=== PATIENT | female | born 1955 | race Caucasian/White ===

== ENCOUNTER 2018-07-09 08:52 | Inpatient (IN) | payer OTHER ==
[~2018-07-09] VITALS: Ht 152.4 cm; Wt 54.9 kg
[2018-07-09] VITALS (9 sets, daily range): BP systolic 136–151; BP diastolic 79–93
[2018-07-09] MEDS ORDERED: LASIX 20 MG TAB20 MG PO (09:24)
[2018-07-09] MEDS ORDERED: AWAKE200 MG PO (09:24)
[2018-07-09] MEDS ORDERED: ASPIR 8181 MG PO (09:24)
[2018-07-09] MEDS ORDERED: BUTISOL SODIUM30 MG PO (09:25)
[2018-07-09] MEDS ORDERED: SPIRIVA INH (09:25)
[2018-07-09] MEDS ORDERED: PREDNISONE 20 M20 MG PO (09:25)
[2018-07-09] MEDS ORDERED: ACETAMINOPHEN-1 EAC1 PO (09:25)
[2018-07-09] MEDS ORDERED: FLUOCINOLON118.28 M1 TOP (09:25)
[2018-07-09 09:46] LABS: HEMATOCRIT 40.7 % (37.0-47.0); HEMOGLOBIN 12.7 gm/dL (12.0-15.0); MCH 28.2 pg (26.0-34.0); MCHC 31.2 g/dL (28.0-37.0); MCV 90.1 fL (80.0-100.0); MPV 6.6 fl. (7.2-11.1); NUCLEATED RBCS 0 /100WBC; PLATELET COUNT* 293 thou/uL (150-400); RBC 4.51 mil/uL (4.20-5.00); RDW-CV 17.9 % (10.5-14.5); WBC 4.7 thou/uL (4.0-11.0)
[2018-07-09 10:40] LABS: ABSOLUTE EOSINOPHILS 0.5 thou/uL (0.0-0.7); ABSOLUTE LYMPHOCYTES 0.4 thou/uL (0.8-5.3); ABSOLUTE MONOCYTES 0.2 thou/uL (0.0-1.2); ABSOLUTE NEUTROPHILS 3.6 thou/uL (1.6-8.1); ANISOCYTOSIS 1+; METAMYELOCYTES 1 %; PLATELET ESTIMATE ADEQUATE
[2018-07-09 10:44] LABS: ANION GAP 9 mmol/L (7-16); BUN 14 mg/dL (7-18); CALCIUM 8.9 mg/dL (8.5-10.1); CHLORIDE 104 mmol/L (98-107); CO2 27 mmol/L (21-32); GLUCOSE 126 mg/dL (70-99); POTASSIUM 4.1 mmol/L (3.5-5.1); SODIUM 140 mmol/L (136-145)
[2018-07-09 10:51] LABS: ALBUMIN 3.5 g/dL (3.4-5.0); ALKALINE PHOSPHATASE 43 U/L (46-116); SGOT 18 U/L (15-37); SGPT 13 U/L (30-65); TOTAL BILIRUBIN 0.3 mg/dL (<0.1-1.0); TOTAL PROTEIN 6.7 g/dL (6.4-8.2); TROPONIN-I LEVEL <0.06 ng/mL (<0.06)
[2018-07-09 11:48] LABS: APTT 24.4 Seconds (25.0-31.3); PROTIME 10.7 Seconds (9.20-11.50)
--- NOTE | 2018-07-09 17:01 | EKG ---
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
[2018-07-10] VITALS (16 sets, daily range): BP systolic 137–159; BP diastolic 75–98
[2018-07-10 12:12] LABS: CHOLESTEROL 282 mg/dL (<200); HDL CHOLESTEROL 100 mg/dL (>40); LDL CHOLESTEROL 155 mg/dL (<100); TC:HDL 2.8 Ratio (Not establshd); TRIGLYCERIDE 136 mg/dL (<150); VLDL 27 mg/dL (<40)
[2018-07-10 12:21] LABS: SERUM ASSESSMENT Clear
[2018-07-11] VITALS: BP 167/86
[2018-07-11 04:00] VITALS: BP 158/92
[2018-07-11 08:00] VITALS: BP 154/93
[2018-07-11 11:36] VITALS: BP 172/97
[2018-07-11 13:18] LABS: ABSOLUTE LYMPHOCYTES 0.2 thou/uL (0.8-5.3); ABSOLUTE MONOCYTES 0.4 thou/uL (0.0-1.2); ABSOLUTE NEUTROPHILS 8.7 thou/uL (1.6-8.1); BASOPHILS 0.1 %; EOSINOPHILS 0.5 %; HEMATOCRIT 45.1 % (37.0-47.0); LYMPHOCYTES 2.5 %; MCH 28.7 pg (26.0-34.0); MCHC 32.6 g/dL (28.0-37.0); MCV 88.3 fL (80.0-100.0); MONOCYTES 3.9 %; MPV 6.9 fl. (7.2-11.1); NUCLEATED RBCS 0 /100WBC; PLATELET COUNT* 329 thou/uL (150-400); RBC 5.11 mil/uL (4.20-5.00); RDW-CV 17.1 % (10.5-14.5); WBC 9.3 thou/uL (4.0-11.0)
[2018-07-11 13:34] LABS: HEMOGLOBIN 14.7 gm/dL (12.0-15.0)
[2018-07-11 13:44] LABS: CALCIUM 9.2 mg/dL (8.5-10.1); CREATININE 0.8 mg/dL (0.6-1.3); MAGNESIUM 1.5 mg/dL (1.8-2.4); POTASSIUM 3.6 mmol/L (3.5-5.1)
[2018-07-11 15:37] VITALS: BP 130/81
[2018-07-11 20:00] VITALS: BP 115/75
[2018-07-12] VITALS: BP 142/85
[2018-07-12 04:00] VITALS: BP 125/81
[2018-07-12 08:14] VITALS: BP 133/70
[2018-07-12] MEDS ORDERED: LOSARTAN-HCTZ1 EACH PO (10:13)
[2018-07-12] MEDS ORDERED: DEPAKOTE ER500 MG PO (10:15)
[2018-07-12] MEDS ORDERED: FIORINAL WITH1 EACH PO (10:17)
[2018-07-12] MEDS ORDERED: PEPCID20 MG PO (10:18)
[2018-07-12] MEDS ORDERED: IMITREX100 MG PO (10:20)
[2018-07-12] MEDS ORDERED: KEFLEX500 M1 PO (10:37)
[2018-07-12] MEDS ORDERED: HYDROXYZINE HCL25 M1 PO (10:38)
[2018-07-12] MEDS ORDERED: DECADRON4 MG PO (10:38)
[2018-07-12] MEDS ORDERED: LASIX 20 MG TAB20 MG PO (10:39)
[2018-07-12] MEDS ORDERED: KEPPRA 500 MG500 M1 PO (10:50)
[2018-07-12 12:00] VITALS: BP 104/67
[2018-07-12 12:47] VITALS: BP 133/70
--- NOTE | 2018-07-20 09:32 | EEG ---
[address] [address] EEG STUDY REPORT Name: ABISAI PEDRO Zhanna Room: [address] IN M.R.#: [id number] Admission: 07/09/18 Attend Phys: Garfield Andrea Discharge: 07/12/18 Date of : 55 Report #: [id number] THIS REPORT FOR: //name// CC: Letitia Welch DATE OF SERVICE: 07/09/2018 This patient is being evaluated for pretty unusual presentation. She had a seizure and she is unresponsive. EEG was done by placing the electrodes by standard 10-20 system of electrode placement. Both referential and sequential montages were used for recording. Background activity in this patient's EEG is about 7 Hz and 30 microvolts. Photic stimulation is unremarkable. Throughout the record, no active epileptiform activity was noticed. IMPRESSION: This is an abnormal EEG because it is disorganized and poorly formed. That is a nonspecific abnormality, which can occur with encephalopathy, effect of psychotropic medication, dementia, etc. Clinical correlation is recommended. <ELECTRONICALLY SIGNED> By: Todd Eden MD 07/20/18 0932 1642 1657Todd Eden MD /nt
--- NOTE | 2018-07-20 09:32 | CON ---
[address] [address] CONSULTATION Name: ABISAI PEDRO Room: [address] IN M.R.#: [id number] Admission: 07/09/18 Attend Phys: Garfield Andrea Discharge: 07/12/18 Date of : 55 Report #: [id number] THIS REPORT FOR: //name// CC: Letitia Welch DATE OF SERVICE: 07/09/2018 HISTORY OF PRESENT ILLNESS: This is a 63-year-old female patient who is unable to provide any history. History is taken after talking to the patient's son and the patient's . I talked to Dr. Esquivel multiple times. History is very complicated and decision making was very difficult. The patient's family gives a history that she started having grand mal seizures in 1987. It looks like this started spontaneously without any trauma or BRAIDER TENDER infection. She was put on anticonvulsant. They do not know which anticonvulsant she was on. Anticonvulsant mostly controlled her seizure, but she will continue to have intermittent seizures. They estimated that she had between 5-10 seizures which were grand mal seizures since 1987. The seizures typically consist of pretty classical tonic-clonic activity followed by postictal period. Postictal periods typically last about 1-2 hours. The family gives a history that this patient was acting "goofy" for 1 week. In between, they thought that she may have had a seizure-like activity. That happened on Monday. She did not seek any medical attention. Since her seizure in 1987, she likes to stay only at home and she has lost confidence according to the family and she does not drive. This morning around 8:15, she complained of problem with the vision. This was followed by a grand mal seizure. This was followed by a postictal period and when she was brought to Emergency Room, she was in postictal period. She was initially seen by Dr. Esquivel from Emergency Room who did a CT scan of the head, which was unremarkable. Subsequently, I was called and I saw the patient. When I saw the patient, the patient was actively seizing. She will start the seizure. Then, she will have generalized jerking. She was not responsive. According to the nurses, she has talked but did not make any sense. Because of recurrent seizures, she was given Ativan subsequently and it was very difficult to examine her after that. She does have hypertension according to the family, but she does not take her medication properly. REVIEW OF SYSTEMS: A 14-point review of system was carried out as much as we could with the time constraint. The biggest thing she has positive is for seizures. She does have a history of migraine. She used to get one migraine every week, but now she gets it less often. She takes butabarbital on a regular basis. She also takes prednisone on a regular basis. This was 14-point review of system, which I could carry [place] [address] CONSULTATION Name: ABISAI PEDRO Room: [address] IN M.Cristy#: [id number] Admission: 07/09/18 Attend Phys: Garfield Andrea Discharge: 07/12/18 Date of : 55 Report #: [id number] PAST MEDICAL HISTORY: Positive for seizures. FAMILY HISTORY: Negative for early age stroke. SOCIAL HISTORY: She drinks alcohol very rarely and she does not smoke. PHYSICAL EXAMINATION: The patient's examination was very limited. The patient to me opened her eyes, but did not do anything. She does not move the right side much. She does move left side some, but does not move that much either. Pupils are small and nonreactive. She continued to have multiple issues. Her pulse rate is running at 132. Her blood pressure in fact is somewhat low, it is 118; at one time, it was somewhat high; so it is fluctuating. I cannot tell about focality, but she definitely had recurrent seizure activity with the focality towards the right side, but seizures are generalized. IMPRESSION: 1. Recurrent seizures in the patient with a prior history of seizures. She had stopped taking her anticonvulsant by herself about 1 year ago. She had symptom for 1 week, what they describe as goofiness, and I suspect that may be non-convulsive seizures. She was given Keppra for that. 2. Possible stroke, that is the question we addressed numerous times with the family. It is very difficult to tell in a patient like this whether she has an underlying stroke this time or not. Because of that, we went ahead and prepared her for TPA in case we can get some answers from further testing. I frankly discussed with the family that we will do further testing, but time will run out. After discussing virtually all the options with them, my plan was to do a CT angiogram and perfusion in this patient. That was done. I discussed with two radiologists. Both of them indicated that there is no blockage in any of the large vessels in this patient. 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 After discussing with the radiologist, I went back and talked to the family. I discussed with them the options of TPA or not giving her TPA. After discussing the pros and cons of both the options, the family decided that they will stay without TPA. In this patient, TPA was not given because the patient had a known history of seizure, her symptoms were going on for a week, we cannot tell that the deficit is because of seizures or stroke, CT perfusion indicates that she had a stroke, but it is at an irreversible state and it is not in the penumbra stage and CT perfusion is not accurate when the person is having seizures because it contaminates the finding. The family was given the option and the family decided that they do not want TPA. That is a reasonable approach in this patient. Unfortunately, this patient had a stroke and it is in an irreversible stage and because of that, this approach [place] [address] CONSULTATION Name: ABISAI PEDRO Room: [address] IN [facility].#: [id number] Admission: 07/09/18 Attend Phys: Garfield Andrea Discharge: 07/12/18 Date of : 55 Report #: [id number] family is reasonable and we will follow that approach. I will get an EEG done. I will get a stat MRI done. We will send this patient to ICU. The prognosis in this patient is very guarded. I will re-discuss the situation with the family after I have an opportunity to review the MRI. RECOMMENDATIONS: We will restart the patient on Keppra and the patient's family was counseled on all these matters on numerous occasions I had with him. More than 70 minutes of time was spent taking care of this patient today and majority of that time was spent counseling the family. <ELECTRONICALLY SIGNED> By: Todd Eden MD 07/20/18 0932 1322 1655Todd Eden MD /nt
== END 2018-07-12 13:44 | disposition home or self-care (01) | DRG 100 ==
LOC: M.ERS 08:52 → M.ICU 13:14 → M.TBA-ER 13:14 → M.ICU 14:20 → M.2W 07-10 17:18
PROVIDERS: Emergency Medicine Emergency Medical Services; ADMIT Internal Medicine
DX: G40.401 Other generalized epilepsy and epileptic syndromes, not intractable, with status epilepticus (principal); J96.01 Acute respiratory failure with hypoxia; G43.909 Migraine, unspecified, not intractable, without status migrainosus; K52.9 Noninfective gastroenteritis and colitis, unspecified; J44.9 Chronic obstructive pulmonary disease, unspecified; L40.9 Psoriasis, unspecified; Z91.14 Patient's other noncompliance with medication regimen; Z79.82 Long term (current) use of aspirin; Z79.899 Other long term (current) drug therapy

== ENCOUNTER 2018-07-31 11:02 | Inpatient (IN) | payer OTHER ==
[~2018-07-31] VITALS: Ht 152.4 cm; Wt 54.0 kg
[~2018-07-31 11:02] MED LIST: ACETAMINOPHEN-1 EAC1 PO; ASPIR 8181 MG PO; AWAKE200 MG PO; BUTISOL SODIUM30 MG PO; DECADRON4 MG PO; DEPAKOTE ER500 MG PO; FIORINAL WITH1 EACH PO; FLUOCINOLON118.28 M1 TOP; HYDROXYZINE HCL25 M1 PO; IMITREX100 MG PO; KEFLEX500 M1 PO; KEPPRA 500 MG500 M1 PO; LASIX 20 MG TAB20 MG PO; LOSARTAN-HCTZ1 EACH PO; PEPCID20 MG PO; PREDNISONE 20 M20 MG PO; SPIRIVA INH
[2018-07-31 11:05] VITALS: BP 125/61
[2018-07-31 11:49] LABS: HEMATOCRIT 36.8 % (37.0-47.0); HEMOGLOBIN 11.9 gm/dL (12.0-15.0); MCH 28.8 pg (26.0-34.0); MCHC 32.3 g/dL (28.0-37.0); MCV 89.1 fL (80.0-100.0); MPV 7.5 fl. (7.2-11.1); NUCLEATED RBCS 0 /100WBC; PLATELET COUNT* 95 thou/uL (150-400); RBC 4.13 mil/uL (4.20-5.00); RDW-CV 17.7 % (10.5-14.5); WBC 3.2 thou/uL (4.0-11.0)
[2018-07-31 11:58] LABS: ANION GAP 11 mmol/L (7-16); APTT 27.3 Seconds (25.0-31.3); BUN 48 mg/dL (7-18); CHLORIDE 102 mmol/L (98-107); CO2 29 mmol/L (21-32); CREATININE 1.8 mg/dL (0.6-1.3); GLUCOSE 158 mg/dL (70-99); INR 1.1; POTASSIUM 4.5 mmol/L (3.5-5.1); PROTIME 10.8 Seconds (9.20-11.50); SODIUM 142 mmol/L (136-145)
[2018-07-31 12:18] LABS: ALBUMIN 3.6 g/dL (3.4-5.0); ALKALINE PHOSPHATASE 42 U/L (46-116); AMMONIA < 10 umol/L (11-32); CK-MB MASS 1.9 ng/mL (<0.5-3.6); NT-PRO BRAIN NAT PEPTIDE 6108 pg/mL (<300); SGOT 25 U/L (15-37); SGPT 16 U/L (30-65); TOTAL BILIRUBIN 0.4 mg/dL (<0.1-1.0); TOTAL PROTEIN 6.9 g/dL (6.4-8.2); TROPONIN-I LEVEL <0.06 ng/mL (<0.06)
[2018-07-31 12:25] LABS: ABSOLUTE LYMPHOCYTES 0.3 thou/uL (0.8-5.3); ABSOLUTE MONOCYTES 0.1 thou/uL (0.0-1.2); ABSOLUTE NEUTROPHILS 2.8 thou/uL (1.6-8.1); ANISOCYTOSIS 1+; PLATELET ESTIMATE DECREASED; POIKILOCYTOSIS 1+
--- NOTE | 2018-07-31 13:09 | EKG ---
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 : 1955 Requested By: Villa Mo Order Number: [id number] MD: Margarito Calvert Measurements Intervals [place] Rate: 100 P: 87 MO: 134 QRS: 88 QRSD: 97 T: 83 QT: 353 QTc: 456 Interpretive Statements Sinus tachycardia Borderline right axis deviation Compared to ECG 07/09/2018 09:42:28 No significant changes Electronically Signed On 07-31-2018 13:08:46 CDT by Margarito Calvert [email or web address] <ELECTRONICALLY SIGNED> By: Margarito Calvert MD, [facility] 07/31/18 1308 1134 1134 Margarito Calvert MD, FACC /EPI
[2018-07-31 15:49] VITALS: BP 125/69
[2018-07-31 16:05] VITALS: BP 131/85
[2018-07-31 19:30] VITALS: BP 128/61
[2018-08-01] VITALS: BP 119/71
[2018-08-01 04:00] VITALS: BP 132/64
[2018-08-01 05:25] LABS: HEMATOCRIT 34.5 % (37.0-47.0); HEMOGLOBIN 11.1 gm/dL (12.0-15.0); MCHC 32.1 g/dL (28.0-37.0); MCV 90.3 fL (80.0-100.0); MPV 7.7 fl. (7.2-11.1); RBC 3.83 mil/uL (4.20-5.00); RDW-CV 17.7 % (10.5-14.5); WBC 3.6 thou/uL (4.0-11.0)
[2018-08-01 05:57] LABS: CALCIUM 8.9 mg/dL (8.5-10.1); CREATININE 1.1 mg/dL (0.6-1.3); MAGNESIUM 2.1 mg/dL (1.8-2.4); POTASSIUM 4.5 mmol/L (3.5-5.1); TOTAL BILIRUBIN 0.4 mg/dL (<0.1-1.0); TOTAL PROTEIN 5.7 g/dL (6.4-8.2)
[2018-08-01 08:10] VITALS: BP 132/83
[2018-08-01 11:33] VITALS: BP 132/75
[2018-08-01 15:52] VITALS: BP 112/70
[2018-08-01 19:40] VITALS: BP 113/86
[2018-08-02] VITALS: BP 103/58
[2018-08-02 04:00] VITALS: BP 115/62
[2018-08-02 08:30] VITALS: BP 130/81
[2018-08-02 11:47] VITALS: BP 116/78
[2018-08-02 12:02] LABS: URINE BILIRUBIN NEGATIVE (Negative); URINE BLOOD 2+ (Negative); URINE CLARITY CLEAR; URINE COLOR YELLOW; URINE GLUCOSE-RANDOM NEGATIVE (Negative); URINE KETONES NEGATIVE (Negative); URINE LEUKOCYTES-REFLEX NEGATIVE (Negative); URINE NITRITE-REFLEX NEGATIVE (Negative); URINE PROTEIN 1+ (Negative); URINE UROBILINOGEN 0.2 E.U./dl (0.2-1.0)
[2018-08-02 12:12] LABS: BACTERIA-REFLEX 1-9 Few /HPF (None Seen); CASTS None Seen /LPF (None Seen); CRYSTALS None Seen /LPF (None Seen); MUCUS 0-3 Light strn/LPF (None Seen); SQUAMOUS 0-3 Few /LPF (0-3); URINE RBC 3-10 Few /HPF (0-2); URINE WBC-REFLEX 0-5 Rare /HPF (0-5)
[2018-08-02] MEDS ORDERED: FOLIC ACID1 MG PO (13:51)
[2018-08-02 14:03] VITALS: BP 116/78
[2018-08-02] MEDS ORDERED: DEPAKOTE PO (14:24)
--- NOTE | 2018-08-06 09:50 | EEG ---
[address] [address] EEG STUDY REPORT Name: ABISAI PEDRO Room: [address] IN M.R.#: [id number] Admission: 07/31/18 Attend Phys: Damion Srivastvaa MD Discharge: 08/02/18 Date of : 55 Report #: [id number] THIS REPORT FOR: //name// CC: Damion Welch DATE OF SERVICE: 08/01/2018 This patient is being evaluated for altered mental status. EEG was done by placing the electrodes by standard 10/20 system of electrode placement. Both referential and sequential montages were used for recording. Background activity in this patient's EEG is about 7 Hz and 30 microvolt. Photic stimulation was unremarkable. The patient went to sleep and that was associated with bilaterally symmetrical sleep spindles and vertex sharp waves. Some sharp transient was noticed, but most of the activity is slow. IMPRESSION: This is an abnormal electroencephalogram because it is disorganized and poorly formed. That is a nonspecific abnormality, which can occur with encephalopathy, effect of psychotropic medication, dementia, etc. Clinical correlation is recommended. <ELECTRONICALLY SIGNED> By: Todd Eden MD 08/06/18 0950 1829 1851Psrinivasa Eden MD /nt
--- NOTE | 2018-08-06 09:50 | CON ---
[facility] [address] [place] [address] CONSULTATION Name: ABISAI PEDRO Room: [address] IN M.R.#: [id number] Admission: 07/31/18 Attend Phys: Damion Srivastava MD Discharge: 08/02/18 Date of : 55 Report #: [id number] THIS REPORT FOR: //name// CC: Damion Welch DATE OF SERVICE: 08/01/2018 HISTORY OF PRESENT ILLNESS: This is a 63-year-old female patient whom I have seen in the past. This patient is not able to provide a good history why she is here. I had 2 numbers for the patient's family and and I called them and I cannot get any answer from them. The patient does not believe there is anything wrong with her. She was admitted here with what looks like seizures and then was dismissed. When she went home, she was on Keppra but subsequently, she went on Depakote. I am not sure when did that occur. I am trying to get the family to see if I can address any question with them. The patient apparently was drowsy when she came here. She is not drowsy anymore. She had some visual hallucination. She cannot tell me much about that. She has a history of delirium. I carried out 14-point review of systems and that is all the history I can get. She had a hernia repair in the past. She had breast biopsy and has a history of migraine and psoriasis. REVIEW OF SYSTEMS: This was her relevant 14-point review of system. She indicates that she does not have any new eye, ENT, cardiac, respiratory, GI, , musculoskeletal, constitutional, dermatological, hematological, psychiatric, throat and allergic symptoms associated with present symptomatology. PAST MEDICAL HISTORY: Positive for seizure and she is back on Depakote. FAMILY HISTORY: Negative for early age seizure. SOCIAL HISTORY: She indicates she does not drink alcohol. PHYSICAL EXAMINATION: NEUROLOGICAL: Indicate she is alert. She is partly oriented as she was the last time I saw her. Her speech, concentration, fund of knowledge and memory is at her baseline. Cranial nerve examination 2 through 12 looks unremarkable. Neuromuscular examination as checked for strength, sensation, reflexes and tone looks unchanged. No cerebellar sign. I could not look at the patient's fundus. EXTREMITIES: Pulses are difficult to feel. GENERAL: She is moderately-built individual who does not have any dysmorphic features of eyes, ears and face. CARDIAC: Examination is unremarkable. RESPIRATORY: Examination does not show any respiratory difficulty or rhonchi on either side. NECK: [place] [address] CONSULTATION Name: ABISAI PEDRO Room: [address] IN M.R.#: [id number] Admission: 07/31/18 Attend Phys: Damion Srivastava MD Discharge: 08/02/18 Date of : 55 Report #: [id number] VITAL SIGNS: Blood pressure is 132/83, pulse is 82, temperature is 98.5 and respiration is 18. RADIOLOGICAL DATA: Her MRI is pending. LABORATORY DATA: Lab indicates a sodium of 146. White count is 3.6 and platelet count is 102 and in June, it was 329. IMPRESSION: History of seizure. She was switched to Depakote. That needed to be readdressed because her platelet count has fallen. I cannot get any good history from the patient when and where it was switched. I need to talk to the family. She is scheduled to have an MRI done and we will see what it shows. We will also get an EEG done in this patient. We will reevaluate the situation after the above is accomplished and after we are able to talk to the family. RECOMMENDATIONS: 1. EEG. 2. MRI. 3. Continue to make an effort to reach the family, so that we can get some further information on her. Thank you very much for this referral. <ELECTRONICALLY SIGNED> By: Todd Eden MD 08/06/18 0950 1140 [id number] Eden MD /ashia
== END 2018-08-02 14:52 | disposition home or self-care (01) | DRG 682 ==
LOC: M.ERS 11:02 → M.TBA-ER 13:50 → M.2W 15:56
PROVIDERS: Emergency Medicine; ADMIT Internal Medicine
DX: N17.0 Acute kidney failure with tubular necrosis (principal); G92 Toxic encephalopathy; G43.909 Migraine, unspecified, not intractable, without status migrainosus; R41.0 Disorientation, unspecified; F03.90 Unspecified dementia, unspecified severity, without behavioral disturbance, psychotic disturbance, mood disturbance, and anxiety; L40.9 Psoriasis, unspecified; E53.8 Deficiency of other specified B group vitamins; D72.819 Decreased white blood cell count, unspecified; E86.9 Volume depletion, unspecified; Z79.899 Other long term (current) drug therapy; Z23 Encounter for immunization; Z79.82 Long term (current) use of aspirin

== ENCOUNTER 2018-12-25 21:03 | Inpatient (IN) | payer OTHER ==
[~2018-12-25] VITALS: Ht 162.6 cm; Wt 54.4 kg
[~2018-12-25 21:03] MED LIST changes: +DEPAKOTE PO; +FOLIC ACID1 MG PO; +LOSARTAN-HCTZ1 EAC2 PO; -LOSARTAN-HCTZ1 EACH PO
[2018-12-25 21:34] VITALS: BP 76/43
[2018-12-25 21:56] LABS: URINE BLOOD NEGATIVE (Negative); URINE CLARITY CLEAR; URINE COLOR YELLOW; URINE GLUCOSE-RANDOM NEGATIVE (Negative); URINE KETONES NEGATIVE (Negative); URINE LEUKOCYTES-REFLEX NEGATIVE (Negative); URINE NITRITE-REFLEX NEGATIVE (Negative); URINE PROTEIN NEGATIVE (Negative); URINE SPECIFIC GRAVITY >= 1.030 (1.005-1.030); URINE UROBILINOGEN 0.2 E.U./dl (0.2-1.0)
[2018-12-25 21:59] LABS: ICTOTEST (BILI CONFIRMATORY) Negative (Negative); URINE BILIRUBIN 1+ (Negative)
[2018-12-25 22:09] LABS: AMP/METHAMP Negative (Negative); BARBITURATES POSITIVE (Negative); BENZODIAZEPINES POSITIVE (Negative); COCAINE Negative (Negative); METHADONE Negative (Negative); OPIATES POSITIVE (Negative); PCP Negative (Negative); THC Negative (Negative)
[2018-12-25 22:41] LABS: HEMATOCRIT 40.4 % (37.0-47.0); HEMOGLOBIN 12.7 gm/dL (12.0-15.0); MCH 29.6 pg (26.0-34.0); MCHC 31.3 g/dL (28.0-37.0); MCV 94.6 fL (80.0-100.0); MPV 8.3 fl. (7.2-11.1); NUCLEATED RBCS 0 /100WBC; RBC 4.27 mil/uL (4.20-5.00); RDW-CV 15.9 % (10.5-14.5)
[2018-12-25 23:06] LABS: ACETAMINOPHEN < 2 ug/mL (10-30); SALICYLATE 3.9 mg/dL (2.8-20.0)
[2018-12-25 23:08] LABS: ALBUMIN 2.8 g/dL (3.4-5.0); CALCIUM 8.1 mg/dL (8.5-10.1); CREATININE 5.3 mg/dL (0.6-1.3); MAGNESIUM 2.5 mg/dL (1.8-2.4); TOTAL BILIRUBIN 0.3 mg/dL (<0.1-1.0); TOTAL PROTEIN 6.2 g/dL (6.4-8.2)
[2018-12-25 23:16] LABS: ABSOLUTE LYMPHOCYTES 0.5 thou/uL (0.8-5.3); ABSOLUTE MONOCYTES 0.3 thou/uL (0.0-1.2); ABSOLUTE NEUTROPHILS 4.3 thou/uL (1.6-8.1); PLATELET COUNT* 66 thou/uL (150-400); PLATELET ESTIMATE DECREASED
[2018-12-25 23:18] LABS: POTASSIUM 6.3 mmol/L (3.5-5.1)
[2018-12-26] VITALS (26 sets, daily range): BP systolic 82–131; BP diastolic 44–96
[2018-12-26 03:38] LABS: CREATININE 4.1 mg/dL (0.6-1.3); POTASSIUM 5.2 mmol/L (3.5-5.1)
[2018-12-26 04:06] LABS: BE -9.9 mmol/L (-2 to +3); PCO2 39.7 mmHg (35.0-45.0)
[2018-12-26 04:11] LABS: PO2 403.7 mmHg (75.0-100.0); pH 7.243 (7.340-7.450)
--- NOTE | 2018-12-26 04:20 | NUR ---
patient arrived to unit @ 0410 ventilator, versed gtt and calcium gluconate iv infusing. pt having twitching like movements non-rhythmic. pupils 1 reactive sluggish. pt sinues tachy on monitor. temp 99.0. bp, rr wnl. pt had bm during transfer. erythema on sacrol noted. pictures taken on chart. no family member at bedside. will continue to monitor.
[2018-12-26] MEDS ORDERED: BUTALB-APAP-CA1 EACH PO (09:03)
[2018-12-26] MEDS ORDERED: PROTOPIC OINTME30 GM TOP (09:08)
--- NOTE | 2018-12-26 10:43 | NUR ---
WOUND CARE NOTE: CONSULT RECEIVED FOR SACRAL AREA RED BLANCHABLE ON ADMISSION. CARE PLAN IN PLACE. LOW AIR LOSS MATTRESS IN PLACE. SPOKE WITH PATIENT'S RN, RECOMMEND SIDE TO SIDE TURNING, CONTINUE LOW AIR LOSS MATTRESS, LIMIT HOB <30 DEGREES IF ABLE. WOULD ALSO RECOMMEND LIMITING LAYERS UNDER PATIENT BARRIER OINTMENT BID AND PRN ELEVATE HEELS OFF BED
--- NOTE | 2018-12-26 17:09 | NUR ---
PATIENT BP DROPPED TO 84/53. HR 126. PHYSICIAN PAGED. AWAITING RESPONSE.
--- NOTE | 2018-12-26 18:41 | NUR ---
PATIENT SOMEWHAT PROGRESSING TOWARDS GOALS. WEANED TO 30% FIO2. PER PULMONARY KEEP OFF SEDATION IF ABLE, GIVE PRN PUSH VERSED AND FENTANYL TO KEEP COMFORTABLE UNTIL WEANING TRIAL IN AM. PROPOFOL AVAILABLE IF NEEDED. PATIENT CATHETER EXCHANGED. PER ULTRASOUND, PATIENT'S BLADDER FULL WITH CATHETER IN. MANUPULATED TO DRAIN 500 ML AT THAT TIME. UPON EVENING I&O, PATIENT BLADDER DISTENDED. CATHETER CHANGED OUT AND EMPTIED 400 MORE ML AT THAT TIME. HUNG TO DEPENDENT DRAINAGE. PATIENT SCREENED SEPSIS POSITIVE. PER DR YUEN, FLUID CHALLENGE GIVEN. BP 130/75 AT THIS TIME. PRESENT BRIEFLY TODAY. UPDATED ON PLAN OF CARE AND ALL QUESTIONS ANSWERED.
--- NOTE | 2018-12-26 23:07 | NUR ---
Body dc'd from unit per cart and escorted by security.
[2018-12-27] VITALS (22 sets, daily range): BP systolic 92–132; BP diastolic 54–81
[2018-12-27 04:39] LABS: ALBUMIN 2.4 g/dL (3.4-5.0); CALCIUM 8.6 mg/dL (8.5-10.1); MAGNESIUM 2.1 mg/dL (1.8-2.4); PHOSPHORUS* 2.7 mg/dL (2.5-4.9); POTASSIUM 3.5 mmol/L (3.5-5.1)
[2018-12-27 05:24] LABS: CREATININE 1.5 mg/dL (0.6-1.3)
--- NOTE | 2018-12-27 05:28 | NUR ---
patient progressing towards goals. opens eyes when oral care is administered. grimaces when being turned. versed iv pushes given to keep pt comfortable. pt was taken off tube feed @0000 today d/t high residuals. pt bp wnl through out shift. pt received q2h turns remaind off back, barrier ointment added prn. urine output 750. expected weaning trial this a.m. spoke to last night updated on care. he voiced understanding. pt in seizure precautions will continue to monitor.
--- NOTE | 2018-12-27 07:55 | CON ---
[address] [address] CONSULTATION Name: ABISAI PEDRO Room: [address] IN .R.#: [id number] Admission: 12/26/18 Attend Phys: Yamilex Borjas MD Discharge: Date of : 55 Report #: [id number] THIS REPORT FOR: //name// CC: Omid Borjas DATE OF SERVICE: 12/26/2018 TYPE OF REPORT: New patient evaluation. REASON FOR CONSULTATION: Metabolic encephalopathy and acute respiratory failure requiring mechanical ventilation. HISTORY OF PRESENT ILLNESS: The patient is a 63-year-old woman, currently sedated and intubated; who presented with altered mental status. She has past medical history of seizure, hypertension and migraine. She had similar presentation of altered mental status, acute encephalopathy, back in May of last year. She has been having decreased responsiveness for the last 3 days and has the decreased p.o. intake. In the ED, she was tremulous, was encephalopathy, was given Narcan without improvement in the ED and was found to have severe acute kidney injury. Given fluids with some improvement in her creatinine; however, with severe encephalopathy, the patient was intubated, currently on Versed at 3. She is heavily sedated, not responsive at this time. Her toxicology screen was positive for barbiturate, benzodiazepine and opiates. REVIEW OF SYSTEMS: Not obtainable. Discussed with nursing and reviewed records. Family not available. Other than that, she has decreased p.o. intake. Similar presentation in the past. Previous history of seizure. No documented seizure. PAST MEDICAL HISTORY: As above, delirium, seizure, hallucination in the past and eczema. MEDICATIONS: At home reviewed including codeine, which she has been taking regularly and folic acid. She is on aspirin. PAST SURGICAL HISTORY: Hernia repair. FAMILY HISTORY: No family history and the patient is intubated. SOCIAL HISTORY: Former smoker. Denies alcohol. Alcohol was negative on her. PHYSICAL EXAMINATION: GENERAL: The patient is sedated and intubated. HEENT: Eyes nonicteric. NECK: Supple. No lymph node enlargement. No jug[place] [address] CONSULTATION Name: WILLISABISAI C Room: [address] IN [facility]#: [id number] Admission: 12/26/18 Attend Phys: Yamilex Borjas MD Discharge: Date of : 55 Report #: [id number] CHEST: Equal breath sounds. She has barrel chest. Suspect COPD versus deformity. CARDIOVASCULAR: Regular rhythm. Normal S1 and S2. No murmur. Capillary refill is very poor in the upper and lower extremities. ABDOMEN: Soft and nontender. EXTREMITIES: She has poor capillary refill. No edema. SKIN: As above. Poor capillary refill, dusky. NEUROLOGICAL: Sedated. LABORATORY AND OTHER DATABASE: Chest x-ray, which I have reviewed, showed pulmonary vascular congestion. Labs: Her white blood cell count was 5000; hemoglobin 12.7 and platelets were 66,000. Her platelet from last admission in July was 102. Blood gas pH 7.24, pCO2 of 39 and pO2 403. She is on assist control FiO2 was 100 and PEEP of 5 and rate of 10. Chest x-ray as above. Toxicology as above. Opiate positive. Valproic acid was 39, which is suboptimal. ASSESSMENT AND PLAN: Acute encephalopathy. Differential diagnosis includes uremic encephalopathy versus intoxication with opiates versus seizure related with suboptimal difficult. At this time, the patient is sedated. We need to wean sedation and we will start a propofol versus Precedex. We will consider weaning the ventilator when her metabolic acidosis improves and if the patient is more awake. Wean FiO2 as tolerated her arterial blood gas that required. Currently, the patient with acute respiratory failure as above to protect airway. She is currently on empiric treatment for aspiration pneumonia with Levaquin and Zosyn. We will obtain sputum cultures. We will continue to follow up the chest x-ray and we will do a trial in the morning if the patient is awake and alert. Critical care time taking care of the patient was 35 minutes. Please do not hesitate to call with questions. <ELECTRONICALLY SIGNED> By: Roderick Esposito MD 12/27/18 0755 1237 0007Asem Nyla Noriega MD /nt
[2018-12-27 08:31] LABS: PCO2 58.9 mmHg (35.0-45.0); pH 7.246 (7.340-7.450)
--- NOTE | 2018-12-27 10:56 | CON ---
[address] [address] CONSULTATION Name: ABISAI PEDRO Room: [address] IN .R.#: [id number] Admission: 12/26/18 Attend Phys: Yamilex Borjas MD Discharge: Date of : 55 Report #: [id number] THIS REPORT FOR: //name// CC: Omid Borjas DATE OF SERVICE: 12/26/2018 CONSULTING PHYSICIAN: Dr. Borjas. REASON FOR CONSULTATION: Acute kidney injury. HISTORY OF PRESENT ILLNESS: A 63-year-old female, with no known history of kidney disease, was admitted with altered mental status. She has underlying history of seizure disorder and migraine headaches. She is currently being treated with antibiotics for suspected aspiration pneumonia. She had admission creatinine of 5.3. She was on Lasix, losartan and hydrochlorothiazide. In July 2018, creatinine was 1.1. She is currently intubated. History is largely obtained through chart review. REVIEW OF SYSTEMS: Constitutional, psych, heme, eyes, ENT, respiratory, cardiac, GI, , endocrine, all negative except as documented above. PAST MEDICAL HISTORY: Seizures, migraine, hypertension. SOCIAL HISTORY: No active tobacco use. FAMILY HISTORY: Not pertinent in this 63-year-old female. MEDICATIONS: Reviewed. PHYSICAL EXAMINATION: VITAL SIGNS: Blood pressure 113/70, pulse 111, respirations 11, temperature 37.2. GENERAL: In no acute distress. EYES: Closed. EARS: Externally normal. CARDIOVASCULAR: Tachycardic. LUNGS: Diminished breath sounds. ABDOMEN: Soft. LYMPHATICS: No pitting edema. NEUROLOGIC: Intubated and sedated. LABORATORY DATA: pH 7.24, pCO2 of 40, pO2 of 404, bicarbonate 16.7. White cell count 5, hemoglobin 12.7, platelets 66. Sodium 140, potassium 5.2, chloride 107, bicarbonate 21, BUN 81, creatinine 4.1, glucose 176, calcium 8. [place] [address] CONSULTATION Name: WILLISABISAI Zhanna Room: [address] IN [facility]#: [id number] Admission: 12/26/18 Attend Phys: Yamilex Borjas MD Discharge: Date of : 55 Report #: [id number] ASSESSMENT: 1. Acute kidney injury with admission creatinine of 5.3. In July 2018, creatinine was 1.1. She is on Lasix, losartan and hydrochlorothiazide. Salicylate level was 3.9. UA noted. 2. Hyperkalemia with a potassium of 6.3 on admission. 3. Metabolic acidosis in the setting of renal insufficiency with negative Tylenol and alcohol levels. 4. Hypoalbuminemia with an albumin of 2.8. 5. Hypertension. 6. Seizures. 7. Migraine headaches. PLAN: 1. She is making urine. Creatinine is coming down. Potassium is improved. 2. Discontinue normal saline. We will start bicarbonate. 3. Check kidney ultrasound. 4. Check a.m. lab. Thank you for requesting my opinion in the care and management of this patient. <ELECTRONICALLY SIGNED> By: Elmer Hair MD 12/27/18 1056 1132 [id number] Hair MD /nt
--- NOTE | 2018-12-27 19:25 | NUR ---
TUBE FEEDINGS ON HOLD, RESIDUAL 110MLS, WILL CONTINUE PER PROTOCOL. PATIENT ON SEDATION WITH PROPOFOL, TITRATED PER PROTOCOL.
[2018-12-28] VITALS (21 sets, daily range): BP systolic 82–146; BP diastolic 43–97
[2018-12-28 05:01] LABS: CALCIUM 8.4 mg/dL (8.5-10.1); POTASSIUM 3.8 mmol/L (3.5-5.1); TOTAL BILIRUBIN 0.2 mg/dL (<0.1-1.0); TOTAL PROTEIN 4.9 g/dL (6.4-8.2)
[2018-12-28 05:02] LABS: HEMATOCRIT 27.1 % (37.0-47.0); MCH 29.9 pg (26.0-34.0); MCHC 33.4 g/dL (28.0-37.0); MPV 8.2 fl. (7.2-11.1); RBC 3.03 mil/uL (4.20-5.00); RDW-CV 16.5 % (10.5-14.5); WBC 2.4 thou/uL (4.0-11.0)
[2018-12-28 05:04] LABS: HEMOGLOBIN 9.1 gm/dL (12.0-15.0); MCV 89.5 fL (80.0-100.0)
--- NOTE | 2018-12-28 06:18 | NUR ---
patient slowly progressing. arousable to touch and name. try to get out of bed and gag ET tube out. sinues tachy to SR on monitor. no acute hemodynamic changes overnight. pt tube feeds turned off. expected weaning trial this a.m. french was adjust slightly to help urine drain. french is very positional. had one moderate size stool this a.m. pt received 2qh turns remained off back and oral care. will continue to monitor closely.
[2018-12-28 08:33] LABS: BE 0.6 mmol/L (-2 to +3); PO2 69.8 mmHg (75.0-100.0); pH 7.409 (7.340-7.450)
[2018-12-28 10:19] LABS: BE 0.4 mmol/L (-2 to +3); PCO2 35.2 mmHg (35.0-45.0); PO2 71.1 mmHg (75.0-100.0); pH 7.453 (7.340-7.450)
--- NOTE | 2018-12-28 13:47 | EEG ---
[address] [address] EEG STUDY REPORT Name: WILLISABISAI Room: [address] IN .#: [id number] Admission: 12/26/18 Attend Phys: Yamilex Borjas MD Discharge: Date of : 55 Report #: [id number] THIS REPORT FOR: //name// CC: Omid Borjas DATE OF SERVICE: 12/26/2018 This patient has a history of seizure as well as has altered mental status. EEG was done by placing the electrodes by standard 10-20 system of electrode placement. Both referential and sequential montages were used for recording. Background activity in this patient's EEG is about 7-8 Hz and 30 microvolt. Photic stimulation is unremarkable. No active epileptiform activity was noticed. IMPRESSION: This patient's EEG is slow and intermixed with even more slowing. That is a nonspecific abnormality, which can occur with encephalopathy, effect of psychotropic medication, dementia, etc. Clinical correlation is recommended. <ELECTRONICALLY SIGNED> By: Todd Eden MD 12/28/18 1347 1301 [id number] Eden MD /nt
--- NOTE | 2018-12-28 13:47 | CON ---
[address] [address] CONSULTATION Name: ABISAI PEDRO Room: [address] IN M.R.#: [id number] Admission: 12/26/18 Attend Phys: Yamilex Borjas MD Discharge: Date of : 55 Report #: [id number] THIS REPORT FOR: //name// CC: Omid Borjas DATE OF SERVICE: 12/26/2018 HISTORY OF PRESENT ILLNESS: This is a 63-year-old female patient who was evaluated by me for altered mental status. The patient was discussed with Dr. Carroll. The patient was discussed with the nurses. The patient is not able to provide any history, so I called the patient's and talked to him. This patient has a history of seizure disorder. The patient has the seizure disorder, which is longstanding. We had seen this patient the last time she was here towards the last part of last year and because of a low platelet count, I had recommended stopping Depakote and going on Keppra. She did not do that and she went back on Depakote. Her platelet count is even lower at 66 now. The patient was not eating and drinking in the last few days. The last time she was here, she also had similar symptom and after she was hydrated, she actually became better. REVIEW OF SYSTEMS: Positive for longstanding history of seizure. She does have evidence of old strokes on her CT scan. She does have a pretty significant dyslipidemia and the last time she was here. She has low platelet count. did not notice any active seizure. This was her relevant 14-point review of system. Rest of them has been summarized in my prior notes. PAST MEDICAL HISTORY: Positive for seizure, but that is longstanding. FAMILY HISTORY: Negative for early age stroke. SOCIAL HISTORY: The says that the patient does not drink any alcohol. PHYSICAL EXAMINATION: Indicates the patient is unresponsive at the moment. She is on the vent. It is not possible to do any significant examination in this patient. She did have a CT, which was reviewed. She is intubated. She is on a vent. Blood pressure is 113/70, respirations 11, pulse is 111. IMPRESSION: 1. History of seizure that appeared to be stable. 2. Renal failure. 3. Poor intake from the last several days. 4. Prior dyslipidemia. 5. [place] [address] CONSULTATION Name: ABISAI PEDRO Room: [address] IN [facility]#: [id number] Admission: 12/26/18 Attend Phys: Yamilex Borjas MD Discharge: Date of : 55 Report #: [id number] RECOMMENDATIONS: 1. We will see how she does after correcting her renal problems. 2. She is already scheduled to get an EEG done and we will check that. 3. If she does not wake up, we may have to do an MRI, but she has to be off the vent to do that. 4. We will repeat her thyroid function, B12 and also lipid profile. 5. I discussed all of it with the patient's in detail and he understood that and he wants to follow this plan. <ELECTRONICALLY SIGNED> By: Todd Eden MD 12/28/18 1347 1109 [id number] Eden MD /nt
--- NOTE | 2018-12-28 14:26 | NUR ---
Pt is A&O. Pt states that she resides at home with her . Pt states that she is independent with ADLs. No DME. No hx of HH or SNF. Per nurse, Pt had a positive drug screen for medications that she does not have scripts for, but the does. Pt was extubated this AM around 855. Pt on o2, does not wear home o2. Goal is home at mo, with 's assistance if needed.
--- NOTE | 2018-12-28 19:57 | NUR ---
PATIENT EXTUBATED AT 0855, EXTUBATION UNEVENTFUL. PAITENT MOVED UP TO THE CHAIR. AMIN CATHETER OUT AT 1420, PATIENT HAS NOT VOIDED POST CATHETER OUT. BLADDER SCAN AT 1830 REVEALED 223MLS.
--- NOTE | 2018-12-28 20:04 | NUR ---
AFTER BLADDER SCAN, PT UP TO BSC TO ATTEMPT TO VOID. WILL CONTINUE TO MONITOR. PT ASSESSED BY ST. PT ON [facility] CHOPPED DIET DUE TO ABSENCE OF DENTURES. PT TOLERATING DIET. VISITED PT AND UPDATED ON CONDITION.
[2018-12-29] VITALS (9 sets, daily range): BP systolic 124–139; BP diastolic 80–97
--- NOTE | 2018-12-29 06:30 | NUR ---
PROGRESSING TOWARDS GOALS, AWAKE MOST OF NOC, USING CALL LIGHT FOR NEEDS APPROPRIATLY INCLUDING OOB, UP TO BSC WITH SBA, SLOW STEADY GAIT, C/O BURNING WITH URINATION. TOLERATING PO FLUIDS, OXYGEN 3L PER NC, SOA WITH EXERTIONAL ACTIVITY THAT RESOLVES WITH REST. AFEBRILE, NSR TRACING FAST FOOD CREW MEMBER. SEIZURE PRECAUTIONS IN PLACE, BED ALARM ON FOR SAFETY. ALERT, AWAKE, AND CONVERSATIVE THIS AM, REQUESTING BREAKFAST MEAL. CALL LIGHT REMAINS IN REACH, BED IN LOW AND LOCKED POSITION.
[2018-12-29 08:10] LABS: ABSOLUTE LYMPHOCYTES 0.3 thou/uL (0.8-5.3); ABSOLUTE MONOCYTES 0.1 thou/uL (0.0-1.2); BASOPHILS 0.4 %; HEMATOCRIT 28.4 % (37.0-47.0); HEMOGLOBIN 9.6 gm/dL (12.0-15.0); LYMPHOCYTES 10.6 %; MCH 29.7 pg (26.0-34.0); MCHC 33.6 g/dL (28.0-37.0); MCV 88.5 fL (80.0-100.0); MONOCYTES 4.6 %; MPV 8.1 fl. (7.2-11.1); NUCLEATED RBCS 0 /100WBC; PLATELET COUNT* 95 thou/uL (150-400); POLYS 84.4 %; RBC 3.21 mil/uL (4.20-5.00); RDW-CV 16.4 % (10.5-14.5); WBC 2.4 thou/uL (4.0-11.0)
[2018-12-29 08:41] LABS: ALBUMIN 2.5 g/dL (3.4-5.0); CALCIUM 8.8 mg/dL (8.5-10.1); CREATININE 0.9 mg/dL (0.6-1.3); POTASSIUM 3.5 mmol/L (3.5-5.1); TOTAL BILIRUBIN 0.2 mg/dL (<0.1-1.0); TOTAL PROTEIN 5.2 g/dL (6.4-8.2)
--- NOTE | 2018-12-29 13:38 | NUR ---
PATIENT TRANSFERRED FROM ICU TO ROOM 310. REPORT RECEIVED FROM PABLO MICHEL. IVF AND SCHED ABX INFUSING ORDERED. AWAITING LUNCH TRAY. PATIENT UP TO SIDE OF BED, INSTRUCTED TO CALL FOR ASSISTANCE WHEN NEEDING OUT OF BED. CALL LIGHT WITHIN REACH.
--- NOTE | 2018-12-29 16:55 | NUR ---
PATIENT REMAINS ON RA. UP WITH ASSISTANCE TO BATHROOM. PATIENT UP WITH THERAPY THIS EVENING. UP TO CHAIR FOR DINNER. NO COMPLAINTS OF PAIN OR SOA.
[2018-12-30] VITALS: BP 113/74
[2018-12-30 04:41] VITALS: BP 127/84
--- NOTE | 2018-12-30 04:52 | NUR ---
PT SLEPT MOST OF SHIFT. ASSESSMENT DOCUMENTED. MEDS GIVEN PER E-DEC. NO REPORTS OF PAIN THIS SHIFT. PT UP WITH 1 TO BATHROOM THROUGH NIGHT. CENTERAL LINE PATENT, FLUIDS INFUSING. SIEZURE PRECAUTIONS IN PLACE. WILL CONTINUE WITH PLAN OF CARE.
[2018-12-30 07:50] VITALS: BP 148/89
[2018-12-30] MEDS ORDERED: KEPPRA 500 MG500 M1 PO (08:28)
[2018-12-30] MEDS ORDERED: AUGMENTIN 875-1 EACH PO (08:28)
[2018-12-30 10:06] VITALS: BP 127/84
--- NOTE | 2018-12-30 12:26 | NUR ---
PT WAS UP TO CHAIR IN AM. WOUND PHOTO TAKEN OF BUTTOCK PER PROTOCOL. SCHEDULED IV ABX INFUSED ORDERED. CENTRAL LINE DC'D PER PATIENT DISCHARGE PER ORDERS. VERBALIZES UNDERSTANDING OF PAPER WORKS AND SCRIPTS, PATIENT REFUSED HOME HEALTH. PATIENT TRANSPORTED VIA WHEELCHAIR WITH ALL BELONGINGS. SPOUSE TO TAKE PATIENT HOME.
== END 2018-12-30 11:45 | disposition home or self-care (01) | DRG 208 ==
LOC: M.ERS 21:03 → M.ICU 12-26 03:19 → M.TBA-ER 12-26 03:19 → M.ICU 12-26 03:56 → M.3W 12-29 13:22
PROVIDERS: Internal Medicine Nephrology; Internal Medicine Pulmonary Disease; Personal Emergency Response Attendant; Psychiatry & Neurology Neuromuscular Medicine; ADMIT Family Medicine
PROC: 0BH17EZ Insertion of Endotracheal Airway into Trachea, Via Natural or Artificial Opening (ICD-10-PCS; principal; 2018-12-26)
PROC: 5A1945Z Respiratory Ventilation, 24-96 Consecutive Hours (ICD-10-PCS; 2018-12-26)
PROC: 05H633Z Insertion of Infusion Device into Left Subclavian Vein, Percutaneous Approach (ICD-10-PCS; 2018-12-26)
DX: J69.0 Pneumonitis due to inhalation of food and vomit (principal); G93.41 Metabolic encephalopathy; J96.22 Acute and chronic respiratory failure with hypercapnia; N17.9 Acute kidney failure, unspecified; E87.2 Acidosis; D61.818 Other pancytopenia; N18.9 Chronic kidney disease, unspecified; G40.909 Epilepsy, unspecified, not intractable, without status epilepticus; F11.90 Opioid use, unspecified, uncomplicated; F13.90 Sedative, hypnotic, or anxiolytic use, unspecified, uncomplicated; I12.9 Hypertensive chronic kidney disease with stage 1 through stage 4 chronic kidney disease, or unspecified chronic kidney disease; G43.909 Migraine, unspecified, not intractable, without status migrainosus; I95.89 Other hypotension; E78.5 Hyperlipidemia, unspecified; E87.5 Hyperkalemia; E80.6 Other disorders of bilirubin metabolism; N28.1 Cyst of kidney, acquired; J44.9 Chronic obstructive pulmonary disease, unspecified; E86.0 Dehydration; Z79.899 Other long term (current) drug therapy; Z28.21 Immunization not carried out because of patient refusal; Z79.82 Long term (current) use of aspirin; Z87.891 Personal history of nicotine dependence

== ENCOUNTER 2020-07-25 10:53 | Inpatient (IN) | payer MEDICARE ==
[~2020-07-25] VITALS: Ht 152.4 cm; Wt 50.8 kg
--- NOTE | ~2020-07-25 | CON ---
[address] [address] CONSULTATION Name: ABISAI PEDRO Room: [address] IN .R.#: [id number] Admission: 07/25/20 Attend Phys: Garfield Andrea Discharge: Date of : 55 Report #: [id number] THIS REPORT FOR: //name// cc: Omid Welch MD, Thomas MD ~ THIS REPORT FOR: //name// CC: Letitia Welch DATE OF SERVICE: 07/26/2020 REQUESTING PHYSICIAN: Dr. James REASON FOR CONSULTATION: Acute kidney injury. HISTORY OF PRESENT ILLNESS: The patient is a 65-year-old female with medical history significant for anorexia, chronic kidney disease, and malnutrition, presents with complaints of nausea and vomiting. Apparently, she has not been eating and drinking for several days. She complains of vomiting, nausea, and anorexia. She was found to be in acute kidney injury, admitted to the hospital. MEDICAL HISTORY: Significant for: 1. Anorexia. 2. Malnutrition. 3. Chronic kidney disease. 4. Chronic obstructive pulmonary disease. 5. History of visual hallucinations. 6. History of delirium. 7. History of seizure. SOCIAL HISTORY: No current tobacco or alcohol abuse. FAMILY HISTORY: Noncontributory. MEDICATIONS PRIOR TO ADMISSION: Reviewed. She was on folic acid and Keppra. REVIEW OF SYSTEMS: Complains of nausea, poor appetite, and being weak. She is not a very talkative person. PHYSICAL EXAMINATION: GENERAL: Awake and alert. VITAL SIGNS: Blood pressure 95/51, heart rate is 92, afebrile. HEENT: Pupils are round. NECK: Supple. LUNGS: [place] [address] CONSULTATION Name: ABISAI PEDRO Room: [address] IN [facility].#: [id number] Admission: 07/25/20 Attend Phys: Garfield Andrea Discharge: Date of : 55 Report #: [id number] CARDIOVASCULAR: Regular rate. ABDOMEN: Soft. LOWER EXTREMITIES: No edema. LABORATORY REPORT: Revealed hemoglobin of 9.8, serum sodium 140, potassium 4, chloride 106, carbon dioxide 27, BUN 65, creatinine 2.5. Creatinine was 4.4 yesterday on admission. Chest x-ray was clear. Renal ultrasound showed some mild left-sided hydronephrosis, dilated left renal pelvis, and mild increased echogenicity bilaterally. ASSESSMENT: 1. Acute kidney injury due to volume depletion. 2. Volume depletion due to anorexia, nausea, and vomiting. 3. Malnutrition. 4. Mild left-sided hydronephrosis and dilated left renal pelvis. PLAN: 1. Continue IV fluids. 2. We will keep following. By: 1343 0143Alexandr Deepali Koch MD /ashia
[~2020-07-25 10:53] MED LIST changes: +AUGMENTIN 875-1 EACH PO; +BUTALB-APAP-CA1 EACH PO; +PROTOPIC OINTME30 GM TOP
[2020-07-25 11:08] VITALS: BP 115/56
[2020-07-25 11:59] LABS: ABSOLUTE BASOPHILS 0.1 thou/uL (0.0-0.2); ABSOLUTE LYMPHOCYTES 0.5 thou/uL (0.8-5.3); ABSOLUTE MONOCYTES 0.8 thou/uL (0.0-1.2); BASOPHILS 2.1 %; EOSINOPHILS 0.2 %; HEMATOCRIT 38.4 % (37.0-47.0); HEMOGLOBIN 12.3 gm/dL (12.0-15.0); LYMPHOCYTES 8.9 %; MCH 25.7 pg (26.0-34.0); MCV 80.5 fL (80.0-100.0); MONOCYTES 14.6 %; MPV 6.5 fl. (7.2-11.1); NUCLEATED RBCS 0 /100WBC; PLATELET COUNT* 234 thou/uL (150-400); POLYS 74.2 %; RBC 4.77 mil/uL (4.20-5.00); RDW-CV 21.3 % (10.5-14.5); WBC 5.4 thou/uL (4.0-11.0)
[2020-07-25 12:09] LABS: ANION GAP 11 mmol/L (7-16); APTT 26.9 Seconds (25.0-31.3); BUN 78 mg/dL (7-18); CALCIUM 8.6 mg/dL (8.5-10.1); CHLORIDE 99 mmol/L (98-107); CO2 25 mmol/L (21-32); CREATININE 4.4 mg/dL (0.6-1.3); GLUCOSE 119 mg/dL (70-99); POTASSIUM 4.6 mmol/L (3.5-5.1); PROTIME 10.7 Seconds (9.20-11.50); SODIUM 135 mmol/L (136-145)
[2020-07-25 12:23] LABS: ALBUMIN 4.1 g/dL (3.4-5.0); ALKALINE PHOSPHATASE 73 U/L (46-116); NT-PRO BRAIN NAT PEPTIDE > 35000 pg/mL (<300); SGOT 79 U/L (15-37); SGPT 36 U/L (30-65); TOTAL BILIRUBIN 0.3 mg/dL (<0.1-1.0); TOTAL PROTEIN 7.1 g/dL (6.4-8.2)
[2020-07-25 12:38] LABS: ANISOCYTOSIS 2+; OVALOCYTES 1+; PLATELET ESTIMATE ADEQUATE
[2020-07-25 14:00] VITALS: BP 112/65
[2020-07-25 14:05] LABS: URINE BLOOD 1+ (Negative); URINE CLARITY CLEAR; URINE COLOR YELLOW; URINE GLUCOSE-RANDOM NEGATIVE (Negative); URINE KETONES NEGATIVE (Negative); URINE LEUKOCYTES-REFLEX NEGATIVE (Negative); URINE NITRITE-REFLEX NEGATIVE (Negative); URINE PROTEIN TRACE (Negative); URINE SPECIFIC GRAVITY 1.025 (1.005-1.030); URINE UROBILINOGEN 0.2 E.U./dl (0.2-1.0)
[2020-07-25 14:08] LABS: ICTOTEST (BILI CONFIRMATORY) Negative (Negative); URINE BILIRUBIN 1+ (Negative)
[2020-07-25 14:17] LABS: SQUAMOUS 0-3 Few /LPF (0-3)
[2020-07-25 14:20] LABS: URINE WBC-REFLEX 0-5 Rare /HPF (0-5)
[2020-07-25 14:23] LABS: BACTERIA-REFLEX 1-9 Few /HPF (None Seen); MUCUS None Seen strn/LPF (None Seen); URINE RBC 0-2 Rare /HPF (0-2)
[2020-07-25 14:24] LABS: CRYSTALS None Seen /LPF (None Seen); HYALINE CASTS >10 Many /LPF (None Seen)
[2020-07-25] MEDS ORDERED: SPIRIVA18 MCG INH ×2 (15:59→18:00)
[2020-07-25] MEDS ORDERED: FIORINAL CAPSUL1 CA1 PO (16:02)
[2020-07-25] MEDS ORDERED: FIORINAL 50-321 EACH PO (16:09)
[2020-07-25] MEDS ORDERED: FAMOTIDINE 10 M10 MG PO (16:11)
[2020-07-25] MEDS ORDERED: FOLIC ACID1 MG PO ×2 (16:12→17:21)
[2020-07-25] MEDS ORDERED: PROAIR RESPICL90 MCG INH (17:16)
[2020-07-25] MEDS ORDERED: FIORINAL/CODEIN30 M1 PO (17:17)
[2020-07-25] MEDS ORDERED: DUPIXENT300 MG/2 M INJECTION (17:20)
[2020-07-25] MEDS ORDERED: VITAMIN D21250 MCG PO (17:21)
[2020-07-25] MEDS ORDERED: LASIX 40 MG TAB40 MG PO (17:24)
[2020-07-25] MEDS ORDERED: KEPPRA100 MG/1 M PO (17:27)
[2020-07-25] MEDS ORDERED: LOSARTAN-HCTZ1 EAC2 PO (17:36)
[2020-07-25] MEDS ORDERED: COMPAZINE10 MG PO (17:38)
[2020-07-25] MEDS ORDERED: IMITREX 50 MG T50 MG PO (17:56)
[2020-07-25] MEDS ORDERED: XANAX 0.25 MG0.25 MG PO ×2 (18:17→18:19)
[2020-07-25 19:27] VITALS: BP 101/60
[2020-07-25 20:00] VITALS: BP 93/57
[2020-07-25 21:36] LABS: CALCIUM 7.9 mg/dL (8.5-10.1); POTASSIUM 4.3 mmol/L (3.5-5.1)
[2020-07-26 00:17] VITALS: BP 80/46
[2020-07-26 04:13] VITALS: BP 89/57
[2020-07-26 04:46] LABS: HEMATOCRIT 30.6 % (37.0-47.0); MCH 26.1 pg (26.0-34.0); MCHC 32.1 g/dL (28.0-37.0); MCV 81.3 fL (80.0-100.0); MPV 6.5 fl. (7.2-11.1); RBC 3.76 mil/uL (4.20-5.00); RDW-CV 21.1 % (10.5-14.5); WBC 3.4 thou/uL (4.0-11.0)
[2020-07-26 04:50] LABS: HEMOGLOBIN 9.8 gm/dL (12.0-15.0)
[2020-07-26 05:08] LABS: ALBUMIN 2.9 g/dL (3.4-5.0); CALCIUM 8.3 mg/dL (8.5-10.1); CREATININE 2.5 mg/dL (0.6-1.3); MAGNESIUM 2.9 mg/dL (1.8-2.4); POTASSIUM 4.4 mmol/L (3.5-5.1); TOTAL BILIRUBIN 0.3 mg/dL (<0.1-1.0); TOTAL PROTEIN 5.3 g/dL (6.4-8.2)
[2020-07-26 07:45] VITALS: BP 104/59
--- NOTE | 2020-07-26 10:41 | CON ---
[address] [address] CONSULTATION Name: ABISAI PEDRO Room: [address] IN .R.#: [id number] Admission: 07/25/20 Attend Phys: Garfield Andrea Discharge: Date of : 55 Report #: [id number] THIS REPORT FOR: //name// cc: Omid Welch MD, Thomas MD ~ THIS REPORT FOR: //name// CC: Letitia Welch MD DATE OF SERVICE: 07/25/2020 INDICATION: Elevated troponin. HISTORY OF PRESENT ILLNESS: The patient is a very pleasant 65-year-old white female who is admitted to the hospital with recurrent nausea, vomiting and inability to take in oral food or medication or fluids. This has been going on at this time for 2-3 days. She has a history of recurrent issues such as this. She has a history of seizure disorder. In the past when she has had issues with nausea and vomiting and poor p.o. intake, she has had seizures as well. She has had no seizures at this time. Laboratory evaluation shows acute renal failure. In this setting, her NT-proBNP is greater than 35,000 and her troponins are elevated. Her CPKs are also elevated. She denies any chest pain. She denies any history of prior cardiac issues. She is not having any significant shortness of breath. EKG on admission shows sinus rhythm with no acute ST or T-wave abnormalities. Her troponin on admission was 0.28. PAST MEDICAL HISTORY: 1. COPD. 2. Psoriasis. 3. Hypertension. 4. Seizure disorder. 5. Hernia repair. 6. Left breast biopsy. 7. History of migraines. FAMILY HISTORY: Positive for stroke. SOCIAL HISTORY: The patient quit smoking. She has an 68-[id number]-xfsf smoking history. Drinks alcohol rarely. REVIEW OF SYSTEMS: A 14-point review of systems [place] [address] CONSULTATION Name: ABISAI PEDRO Room: [address]#: [id number] Admission: 07/25/20 Attend Phys: Garfield Andrea Discharge: Date of : 55 Report #: [id number] PHYSICAL EXAMINATION: VITAL SIGNS: Stable. Blood pressure 112/65, pulse is 98. GENERAL: This is a thin elderly female, in no distress. HEENT: Head is normocephalic, atraumatic. Extraocular muscles intact. NECK: Shows no jugular venous distention. CHEST: Clear to auscultation. CARDIAC: Regular rhythm without gallop or murmur. ABDOMEN: Reveals normal bowel sounds. The abdomen is soft, nontender. EXTREMITIES: Shows no edema. SKIN: Dry. LABORATORY DATA: A 12-lead EKG shows sinus rhythm with no significant ST segment or T-wave abnormality. Chest x-ray shows no acute cardiopulmonary abnormality. Labs are reviewed. Sodium 135, potassium 4.6, chloride 99, bicarbonate 25, BUN 78, creatinine 4.4, serum glucose 119. LFTs are within normal limits. Total CPK is 1583. Troponin is 0.28. NT-proBNP is greater than 35,000. Coags are within normal limits. White blood cell count 5.4, hemoglobin 12.3, platelet count 234,000. IMPRESSION AND RECOMMENDATIONS: 1. Elevated troponin in the setting of acute renal failure. She is not having symptoms to suggest angina or acute coronary syndrome. I would recommend noninvasive echocardiography. We will repeat troponin in few hours and see if there is a trend. Could consider stress testing as an outpatient. 2. Acute renal failure per Nephrology. 3. History of hypertension. Blood pressure is stable at present. 4. Nausea, vomiting, anorexia. Recommend fluid resuscitation. <ELECTRONICALLY SIGNED> By: Margarito Calvert MD, FACC 07/26/20 1041 1443 1602Margarito Calvert MD, FACC /nt
[2020-07-26 12:00] VITALS: BP 95/51
--- NOTE | 2020-07-26 12:59 | EKG ---
[place] [address] ELECTROCARDIOGRAM REPORT Name: WILLISABISAI Room: [address] ADM IN M.R.#: [id number] Admission: 07/25/20 Attend Phys: Letitia James Discharge: Date of : 55 Date of Service: 07/25/20 1120 Report #: [id number] THIS REPORT FOR: //name// [facility] ED Test Date: 2020-07-25 Test Time: 11:20:04 Pat Name: ABISAI PEDRO Department: Room: [facility] Gender: F Rn Cvicu: OLIVERIO : 1955 Requested By: John Rodrigues Order Number: [id number] MD: Margarito Calvert Measurements Intervals [place] Rate: 103 P: 94 SD: 133 QRS: 103 QRSD: 95 T: 86 QT: 331 QTc: 434 Interpretive Statements Sinus tachycardia Right axis deviation Baseline wander in lead(s) II,III,aVF Compared to ECG 07/31/2018 11:34:19 No significant changes Electronically Signed On 07-26-2020 12:59:16 CDT by Margarito Calvert [email or web address] <ELECTRONICALLY SIGNED> By: Margarito Calvert MD, FACC 07/26/20 1259 1120 1120 Margarito Calvert MD, FACC /EPI
[2020-07-26 16:55] VITALS: BP 109/55
[2020-07-26 20:00] VITALS: BP 111/55
[2020-07-27] VITALS (7 sets, daily range): BP systolic 96–132; BP diastolic 48–79
[2020-07-27 05:51] LABS: ALBUMIN 3.4 g/dL (3.4-5.0); CALCIUM 8.6 mg/dL (8.5-10.1); POTASSIUM 4.5 mmol/L (3.5-5.1); TOTAL BILIRUBIN 0.4 mg/dL (<0.1-1.0); TOTAL PROTEIN 6.2 g/dL (6.4-8.2)
[2020-07-27 05:54] LABS: CREATININE 1.2 mg/dL (0.6-1.3)
--- NOTE | 2020-07-27 12:28 | 2DMMODE ---
[place] [address] 2 D/M-MODE ECHOCARDIOGRAM Name: ABISAI PEDRO Room: [address] IN .R.#: [id number] Admission: 07/25/20 Attend Phys: Letitia James Discharge: Date of : 55 Date of Service: 07/27/20 1228 Report #: [id number] THIS REPORT FOR: cc: Omid Welch MD, Thomas MD Liston, Michael J. MD [facility] ~ APPROVED REPORT Study performed: 07/27/2020 09:29:19 EXAM: Comprehensive 2D, Doppler, and color-flow Echocardiogram Patient Location: Bedside BSA: 1.43 HR: 84 bpm BP: 109/62 mmHg Other Information Study Quality: Good Indications Hypertension/HDD IN 2D Dimensions IVSd: 10.04 (7-11mm) LVOT Diam: 17.78 (18-24mm) LVDd: 41.53 mm PWd: 4.87 (7-11mm) Ascending Ao: 27.37 (22-36mm) LVDs: 29.65 (25-40mm) Aortic Root: 27.92 mm Volumes Left Atrial Volume (Systole) LA ESV Index: 14.40 mL/m2 Aortic Valve AoV Peak Ki.: 1.20 m/s AO Peak Gr.: 5.74 mmHg LVOT Max P.34 mmHg AO Mean Gr.: 2.81 mmHg LVOT Mean P.57 mmHg LVOT Max V: 1.16 m/s AO V2 VTI: 23.65 cm LVOT Mean V: 0.72 m/s JADE (VTI): 2.46 cm2 LVOT V1 VTI: 23.43 [place] [address] 2 D/M-MODE ECHOCARDIOGRAM Name: ABISAI PEDRO Room: [address] IN .R.#: [id number] Admission: 07/25/20 Attend Phys: Letitia James Discharge: Date of : 55 Date of Service: 07/27/20 1228 Report #: [id number] E/A Ratio: 0.68 MV Decel. Time: 163.44 ms MV E Max Ki.: 0.71 m/s MV PHT: 47.40 ms MVA (PHT): 4.64 cm2 TDI E/Lateral E': 6.45 E/Medial E': 10.14 Medial E' Ki.: 0.07 m/s Lateral E' Ki.: 0.11 m/s Pulmonary Valve PV Peak Ki.: 1.16 m/s PV Peak Gr.: 5.34 mmHg Tricuspid Valve RAP Estimate: 20.00 mmHg TR Peak Gr.: 46.18 mmHg RVSP: 66.18 mmHg PA Pressure: 66.18 mmHg Left Ventricle The left ventricle is normal size. There is normal LV segmental wall motion. There is normal left ventricular wall thickness. Left ventricular systolic function is normal. LVEF is 60-65%. Grade I - abnormal relaxation pattern. Right Ventricle The right ventricle is normal size. The right ventricular systolic function is normal. Atria The left atrium size is normal. The right atrium size is normal. Aortic Valve The aortic valve is normal in structure. No aortic regurgitation is present. There is no aortic valvular stenosis. Mitral Valve The mitral valve is normal in structure. There is no mitral valve regurgitation noted. No evidence of mitral valve stenosis. Tricuspid Valve The tricuspid valve is normal in structure. Trace tricuspid regurgitation[place] [address] 2 D/M-MODE ECHOCARDIOGRAM Name: WILLISABISAI Room: [address]#: [id number] Admission: 07/25/20 Attend Phys: Letitia James Discharge: Date of : 55 Date of Service: 07/27/20 1228 Report #: [id number] The pulmonary valve is normal in structure. Trace pulmonic regurgitation. Great Vessels The aortic root is normal in size. IVC is dilated. Pericardium There is no pericardial effusion. <Conclusion> The left ventricle is normal size. There is normal left ventricular wall thickness. Left ventricular systolic function is normal. LVEF is 60-65%. Grade I - abnormal relaxation pattern. Trace tricuspid regurgitation. IVC is dilated. <ELECTRONICALLY SIGNED> By: Margarito Calvert MD, FACC 07/27/20 1228 1228 1228 Margarito Calvert MD, FACC /INF
[2020-07-28 04:00] VITALS: BP 121/81
[2020-07-28 05:36] LABS: ABSOLUTE EOSINOPHILS 0.1 thou/uL (0.0-0.7); ABSOLUTE MONOCYTES 0.6 thou/uL (0.0-1.2); ABSOLUTE NEUTROPHILS 4.2 thou/uL (1.6-8.1); BASOPHILS 0.5 %; EOSINOPHILS 1.4 %; HEMATOCRIT 35.1 % (37.0-47.0); HEMOGLOBIN 11.1 gm/dL (12.0-15.0); LYMPHOCYTES 16.5 %; MCH 25.6 pg (26.0-34.0); MCHC 31.6 g/dL (28.0-37.0); MCV 80.9 fL (80.0-100.0); MONOCYTES 10.7 %; MPV 6.6 fl. (7.2-11.1); NUCLEATED RBCS 0 /100WBC; PLATELET COUNT* 125 thou/uL (150-400); POLYS 70.9 %; RBC 4.33 mil/uL (4.20-5.00); RDW-CV 20.4 % (10.5-14.5)
[2020-07-28 06:05] LABS: ALBUMIN 3.2 g/dL (3.4-5.0); CALCIUM 8.4 mg/dL (8.5-10.1); CREATININE 1.1 mg/dL (0.6-1.3); POTASSIUM 3.7 mmol/L (3.5-5.1); TOTAL BILIRUBIN 0.4 mg/dL (<0.1-1.0); TOTAL PROTEIN 5.5 g/dL (6.4-8.2)
[2020-07-28 07:50] VITALS: BP 144/98
[2020-07-28 10:50] VITALS: BP 144/98
== END 2020-07-28 11:39 | disposition home or self-care (01) | DRG 917 ==
LOC: M.ERS 10:53 → M.TBA-ER 12:40 → M.2W 12:40
PROVIDERS: Family Medicine; Internal Medicine; Internal Medicine Nephrology; ADMIT Internal Medicine; ATTEND Internal Medicine
DX: T42.6X1A Poisoning by other antiepileptic and sedative-hypnotic drugs, accidental (unintentional), initial encounter (principal); I50.31 Acute diastolic (congestive) heart failure; G93.41 Metabolic encephalopathy; N17.0 Acute kidney failure with tubular necrosis; R65.10 Systemic inflammatory response syndrome (SIRS) of non-infectious origin without acute organ dysfunction; N13.30 Unspecified hydronephrosis; Q62.11 Congenital occlusion of ureteropelvic junction; E46 Unspecified protein-calorie malnutrition; G40.909 Epilepsy, unspecified, not intractable, without status epilepticus; J44.9 Chronic obstructive pulmonary disease, unspecified; R53.1 Weakness; R79.89 Other specified abnormal findings of blood chemistry; A08.4 Viral intestinal infection, unspecified; E86.9 Volume depletion, unspecified; I11.0 Hypertensive heart disease with heart failure; I27.20 Pulmonary hypertension, unspecified; I95.9 Hypotension, unspecified; G43.909 Migraine, unspecified, not intractable, without status migrainosus; R63.0 Anorexia; Y92.89 Other specified places as the place of occurrence of the external cause; Z79.82 Long term (current) use of aspirin; Z79.899 Other long term (current) drug therapy; Z68.21 Body mass index [BMI] 21.0-21.9, adult; Z87.891 Personal history of nicotine dependence; Z20.828 Contact with and (suspected) exposure to other viral communicable diseases

== ENCOUNTER 2021-05-06 20:24 | Inpatient (IN) | payer MEDICARE ==
[~2021-05-06] VITALS: Ht 162.6 cm; Wt 51.4 kg
--- NOTE | ~2021-05-06 | CON ---
[address] [address] CONSULTATION Name: ABISAI PEDRO Room: [address] IN M.R.#: [id number] Admission: 05/06/21 Attend Phys: Ken Julian MD Discharge: Date of : 55 Report #: [id number] THIS REPORT FOR: cc: Omid Welch MD, Thomas MD Vasudeva, Amita MD ~ DATE OF CONSULTATION: 05/07/2021 NEPHROLOGY CONSULTATION CONSULTING PHYSICIAN: Ken Julian MD REASON FOR NEPHROLOGY CONSULTATION: Acute kidney injury. REASON FOR ADMISSION: Weakness. HISTORY OF PRESENT ILLNESS: This is a 65-year-old female with past history of hypertension, anemia, COPD, seizures, was brought in by because of weakness. She had not been eating and drinking for the past few days. She was also taking NSAIDs and could not tell me how much. Normally, her creatinine is 1.1 and was 1.1 on 06/2020, but she presents with a creatinine of 6.9 and a BUN of 136, potassium of 5.3. She takes losartan at home and her blood pressure was 89/53 when she first came in and she was started on IV fluids. Not sure if she has urinated overnight, but she does have the urge to urinate this morning. ALLERGIES: No known allergies. REVIEW OF SYSTEMS: As mentioned in history of present illness, weakness; otherwise, 10-point review of systems are negative. PAST MEDICAL AND SURGICAL HISTORY: Includes hernia repair, kidney injury, seizures, anemia, COPD. HOME MEDICATIONS: Include sumatriptan, Keppra, ProAir, folic acid, Dupixent, vitamin D2, famotidine, Spiriva, Fiorinal, losartan, Depakote. PHYSICAL EXAMINATION: VITAL SIGNS: Blood pressure 88/41, most recently documented; temperature 36.7, pulse rate is 97, pulse ox is 100% on 4 liters of oxygen via nasal cannula. GENERAL: She was on BiPAP when I saw her. She was alert and she was oriented x 3. HEAD AND EYES: Atraumatic and normocephalic. Conjunctivae normal. EARS, NOSE AND THROAT: Normal ears and nose. BiPAP in place. NECK: There is no JVD. CHEST: Bilaterally clear to auscultation anteriorly[place] [address] CONSULTATION Name: WILLISABISAI Room: [address]#: [id number] Admission: 05/06/21 Attend Phys: Ken Julian MD Discharge: Date of : 55 Report #: [id number] CARDIOVASCULAR SYSTEM: S1 and S2 normal. No murmurs. ABDOMEN: Soft, was distended in the suprapubic area and suprapubic dullness present. No tenderness. EXTREMITIES: Lower extremities: There is no edema. NEUROLOGIC: Neurological function grossly intact. PSYCHIATRIC: Mood and affect-shook, she seems to be slightly depressed. LABORATORY DATA: Sodium was 132, potassium 5.3, chloride was 96, BUN was 136, creatinine was 6.9 and CO2 was 20 and other labs were reviewed. IMAGING: Chest x-ray was reviewed. ASSESSMENT: 1. Acute kidney injury, which is in the setting of hypotension, use of losartan and dehydration, poor p.o. intake. UA and renal ultrasound need to be checked. Not sure how much she is urinating. 2. Hyperkalemia in the setting of acute kidney injury and metabolic acidosis. 3. A combination of respiratory and metabolic acidosis. She did get BiPAP treatment overnight. 4. Poor oral intake. 5. History of hypertension, but she presents with hypotension. Losartan is currently on hold. 6. History of seizures. PLAN: 1. We will change her IV fluids from normal saline to half normal saline with 75 mg sodium bicarb at 125 mL an hour. 2. Her blood pressure is running low, please try to maintain a MAP of around 65-70. 3. Continue to hold losartan. 4. Check a UA and renal ultrasound. 5. We will check a CPK level as well. 6. Baseline creatinine 1.1 in 06/2020. 7. Strict I's and O's and check a bladder scan to make sure she is not retaining urine and if she is retaining, she will need a Krishna catheter. 8. When started on a diet, she should be on a renal diet. Thank you for this consultation. We will continue to follow with you. Discussed with the patient's nurse and the patient in detail. I spent [address] [place] [address] CONSULTATION Name: ABISAI PEDRO Room: [address]#: [id number] Admission: 05/06/21 Attend Phys: Ken Julian MD Discharge: Date of : 55 Report #: [id number] minutes in the patient's critical care. This time we spent in chart review, briefing orders and care coordination and we will continue to follow with you. By: 0837 1252Agracie Cummins MD /nt
[~2021-05-06 20:24] MED LIST changes: +COMPAZINE10 MG PO; +DUPIXENT300 MG/2 M INJECTION; +FAMOTIDINE 10 M10 MG PO; +FIORINAL 50-321 EACH PO; +FIORINAL CAPSUL1 CA1 PO; +FIORINAL/CODEIN30 M1 PO; +IMITREX 50 MG T50 MG PO; +KEPPRA100 MG/1 M PO; +LASIX 40 MG TAB40 MG PO; +PROAIR RESPICL90 MCG INH; +SPIRIVA18 MCG INH; +VITAMIN D21250 MCG PO; +XANAX 0.25 MG0.25 MG PO
[2021-05-06 20:39] VITALS: BP 89/53
[2021-05-06] MEDS ORDERED: FIORINAL CAPSUL1 CA1 (20:45)
[2021-05-06] MEDS ORDERED: SPIRIVA18 MCG INH (20:45)
[2021-05-06] MEDS ORDERED: COZAAR 25 MG TA25 M1 PO (20:47)
[2021-05-06] MEDS ORDERED: DEPAKOTE 250MG250 MG PO (20:47)
[2021-05-06 21:13] LABS: HEMATOCRIT 37.2 % (37.0-47.0); MCHC 32.4 g/dL (28.0-37.0); MCV 80.3 fL (80.0-100.0); MPV 6.5 fl. (7.2-11.1); NUCLEATED RBCS 1 /100WBC; PLATELET COUNT* 183 thou/uL (150-400); RBC 4.63 mil/uL (4.20-5.00); RDW-CV 23.7 % (10.5-14.5); WBC 4.7 thou/uL (4.0-11.0)
[2021-05-06 21:38] LABS: ANION GAP 16 mmol/L (7-16); BUN 136 mg/dL (7-18); CALCIUM 8.3 mg/dL (8.5-10.1); CHLORIDE 96 mmol/L (98-107); CO2 20 mmol/L (21-32); CREATININE 6.9 mg/dL (0.6-1.3); GLUCOSE 142 mg/dL (70-99); POTASSIUM 5.3 mmol/L (3.5-5.1); SODIUM 132 mmol/L (136-145)
[2021-05-06 21:43] LABS: PCO2 53.9 mmHg (35.0-45.0); pH 7.162 (7.340-7.450)
[2021-05-06 21:44] LABS: PO2 < 23.5 mmHg (75.0-100.0)
[2021-05-06 21:46] LABS: ALBUMIN 3.8 g/dL (3.4-5.0); ALKALINE PHOSPHATASE 58 U/L (46-116); MAGNESIUM 3.2 mg/dL (1.8-2.4); SGOT 12 U/L (15-37); TOTAL BILIRUBIN 0.3 mg/dL (<0.1-1.0)
[2021-05-06 21:59] LABS: ABSOLUTE BASOPHILS 0.1 thou/uL (0.0-0.2); ABSOLUTE LYMPHOCYTES 0.5 thou/uL (0.8-5.3); ABSOLUTE MONOCYTES 0.7 thou/uL (0.0-1.2); ABSOLUTE NEUTROPHILS 3.4 thou/uL (1.6-8.1); ANISOCYTOSIS 2+; PLATELET ESTIMATE ADEQUATE; POIKILOCYTOSIS 2+; POLYCHROMASIA 1+; TOXIC GRANULATION 1+
[2021-05-06 22:03] LABS: SGPT 21 U/L (30-65)
[2021-05-06 22:04] LABS: NT-PRO BRAIN NAT PEPTIDE > 35000 pg/mL (<300)
[2021-05-07] VITALS (8 sets, daily range): BP systolic 74–106; BP diastolic 37–57
[2021-05-07 08:19] LABS: CALCIUM 7.8 mg/dL (8.5-10.1); CREATININE 6.4 mg/dL (0.6-1.3); POTASSIUM 5.4 mmol/L (3.5-5.1)
--- NOTE | 2021-05-07 11:12 | EKG ---
[place] [address] ELECTROCARDIOGRAM REPORT Name: ABISAI PEDRO Room: [address] ADM IN M.R.#: [id number] Admission: 05/06/21 Attend Phys: Ken Julian, Discharge: Date of : 55 Date of Service: 05/06/212035 Report #: [id number] THIS REPORT FOR: //name// [place] ED Test Date: 2021-05-06 Test Time: 20:36:48 Pat Name: ABISAI PEDRO Department: Room: [facility] Gender: F Health Program Analyst: [place] : 1955 Requested By: Princess Palmer Order Number: [id number] MD: Clinton Nassar Measurements Intervals [place] Rate: 101 P: 87 IA: 130 QRS: 108 QRSD: 112 T: -7 QT: 325 QTc: 422 Interpretive Statements Sinus tachycardia Left posterior fascicular block Nonspecific T abnormalities, lateral leads Compared to ECG 07/25/2020 11:20:04 Left posterior fascicular block now present T-wave abnormality now present Electronically Signed On 05-07-2021 11:11:48 CDT by Clinton Nassar [email or web address] <ELECTRONICALLY SIGNED> By: Clinton Nassar MD, [facility] 05/07/21 1111 35 35 Clinton Nassar MD, [facility] /EPI
[2021-05-07 12:35] LABS: URINE BLOOD NEGATIVE (Negative); URINE CLARITY CLEAR; URINE COLOR YELLOW; URINE GLUCOSE-RANDOM NEGATIVE (Negative); URINE KETONES TRACE (Negative); URINE LEUKOCYTES-REFLEX NEGATIVE (Negative); URINE NITRITE-REFLEX NEGATIVE (Negative); URINE PROTEIN 1+ (Negative); URINE SPECIFIC GRAVITY >= 1.030 (1.005-1.030); URINE UROBILINOGEN 0.2 E.U./dl (0.2-1.0)
[2021-05-07 12:36] LABS: ICTOTEST (BILI CONFIRMATORY) Negative (Negative); URINE BILIRUBIN 1+ (Negative)
[2021-05-07 13:11] LABS: BE -12.4 mmol/L (-2 to +3)
[2021-05-07 13:23] LABS: BACTERIA-REFLEX 1-9 Few /HPF (None Seen); CASTS None Seen /LPF (None Seen); CRYSTALS None Seen /LPF (None Seen); SQUAMOUS 0-3 Few /LPF (0-3); URINE RBC 0-2 Rare /HPF (0-2); URINE WBC-REFLEX 0-5 Rare /HPF (0-5)
[2021-05-07 13:38] LABS: PCO2 65.7 mmHg (35.0-45.0); PO2 161.7 mmHg (75.0-100.0); pH 7.063 (7.340-7.450)
[2021-05-07 15:56] LABS: BE -12.1 mmol/L (-2 to +3)
[2021-05-07 15:58] LABS: PCO2 58.9 mmHg (35.0-45.0); pH 7.093 (7.340-7.450)
[2021-05-07 16:08] LABS: CALCIUM 7.6 mg/dL (8.5-10.1); CREATININE 6.1 mg/dL (0.6-1.3); MAGNESIUM 3.2 mg/dL (1.8-2.4); POTASSIUM 5.7 mmol/L (3.5-5.1)
[2021-05-07 16:13] LABS: APTT 27.9 Seconds (25.0-31.3); PROTIME 11.1 Seconds (9.20-11.50)
[2021-05-07 20:53] LABS: BE -7.6 mmol/L (-2 to +3)
[2021-05-07 20:58] LABS: pH 7.164 (7.340-7.450)
[2021-05-07 20:59] LABS: PCO2 60.7 mmHg (35.0-45.0); PO2 230.3 mmHg (75.0-100.0)
[2021-05-08] VITALS: BP 95/70
[2021-05-08 04:26] VITALS: BP 96/55
[2021-05-08 06:20] LABS: HEMATOCRIT 30.6 % (37.0-47.0); MCHC 32.4 g/dL (28.0-37.0); PLATELET COUNT* 121 thou/uL (150-400)
[2021-05-08 06:24] LABS: MCH 25.9 pg (26.0-34.0); MPV 6.6 fl. (7.2-11.1); NUCLEATED RBCS 2 /100WBC; RBC 3.83 mil/uL (4.20-5.00); RDW-CV 23.7 % (10.5-14.5)
[2021-05-08 06:37] LABS: HEMOGLOBIN 9.9 gm/dL (12.0-15.0)
[2021-05-08 06:39] LABS: CALCIUM 7.4 mg/dL (8.5-10.1); MAGNESIUM 2.9 mg/dL (1.8-2.4)
[2021-05-08 06:41] LABS: WBC 0.7 thou/uL (4.0-11.0)
[2021-05-08 06:42] LABS: CREATININE 4.7 mg/dL (0.6-1.3); POTASSIUM 4.5 mmol/L (3.5-5.1)
[2021-05-08 07:09] LABS: CALCIUM 7.4 mg/dL (8.5-10.1); CREATININE 4.7 mg/dL (0.6-1.3); POTASSIUM 4.7 mmol/L (3.5-5.1)
[2021-05-08 08:00] VITALS: BP 92/55
[2021-05-08 08:42] LABS: BE -0.2 mmol/L (-2 to +3); pH 7.329 (7.340-7.450)
[2021-05-08 08:45] LABS: PCO2 50.9 mmHg (35.0-45.0)
[2021-05-08 08:53] LABS: ABSOLUTE LYMPHOCYTES 0.6 thou/uL (0.8-5.3); ABSOLUTE NEUTROPHILS 0.1 thou/uL (1.6-8.1); ATYPICAL LYMPHS 16 %; PLATELET ESTIMATE ADEQUATE
--- NOTE | 2021-05-08 10:23 | CON ---
[address] [address] CONSULTATION Name: ABISAI PEDRO Room: [address] IN M.R.#: [id number] Admission: 05/06/21 Attend Phys: Ken Julian MD Discharge: Date of : 55 Report #: [id number] THIS REPORT FOR: cc: Omid Welch MD,Omid Nassar,Clinton Muniz MD FAC ~ cc: Omid Welch MD DATE OF CONSULTATION: 05/07/2021 CARDIOLOGY CONSULTATION HISTORY OF PRESENT ILLNESS: The patient is a 65-year-old white female who I was asked to see in the hospital today after she complained to being short of breath. History is obtained from the patient. There are no family members available. The patient is currently drowsy. She was able to answer questions. She has had several hospitalizations here at [facility] in the past. She was admitted here back in 2018 with epilepsy and respiratory failure. She was found to have metabolic encephalopathy. She was admitted here in 2019 with encephalopathy, aspiration, she actually had to be intubated. She apparently had accidental overdose. She was admitted here last 06/2020 with nausea and vomiting, had gastroenteritis, evidence of diastolic heart failure, chronic kidney disease, COPD. She was brought to the emergency room last night by her . She has been weak for several days, not eating or drinking. She sleeps all the time. There is no fever or cough. She did note some shortness of breath. She had no nausea, vomiting or diarrhea. She denies a history of heart disease. Denies a history of chest pain, palpitations, syncope or peripheral edema. PAST MEDICAL HISTORY: She denied a history of surgery. She did have a history of seizure disorder, COPD, encephalopathy. MEDICATIONS: On admission consist of Keppra, Imitrex for migraines, nebulized treatment, Pepcid, aspirin, and losartan. ALLERGIES: She had no known drug allergies. FAMILY HISTORY: Negative for heart disease. SOCIAL HISTORY: She is . She and her live in [place]. Smokes half pack of cigarettes a day. No alcohol abuse. REVIEW OF SYSTEMS: There is apparently no history of stroke. She does have seizures. She has migraines. No history of liver disease. She has chronic kidney disease. No history of cancer. [place] [address] CONSULTATION Name: ABISAI PEDRO Room: [address]#: [id number] Admission: 05/06/21 Attend Phys: Ken Julian MD Discharge: Date of : 55 Report #: [id number] PHYSICAL EXAMINATION: GENERAL: Revealed a middle-aged female, lying in bed. She appeared in no acute distress. VITAL SIGNS: She had a blood pressure of only 90 systolic, pulse is 90. She is afebrile. HEENT: She was anicteric. Conjunctivae pink. Mucous membranes moist. NECK: Veins not distended. No carotid bruits. CHEST: Revealed distant breath sounds. CARDIAC: Regular rate and rhythm, no significant murmurs. ABDOMEN: Soft. EXTREMITIES: Had no edema. Dorsalis pedis pulse cannot be palpated. SKIN: Cool and dry. NEUROLOGIC: Nonfocal. LABORATORY DATA: Her ECG on admission showed sinus tachycardia. There was nonspecific ST and T-wave changes noted. Her workup, she actually had an echocardiogram done a year ago in 06/2020 when she was here at [facility] that showed ejection fraction 65%, otherwise unremarkable. She had a portable chest x-ray last night that showed cardiomegaly, some atelectasis, no pulmonary edema. Previous renal ultrasound last June showed some hydronephrosis, cortical echogenicity noted. Previous CT scan of the head in 2018 revealed cerebral atrophy, small vessel changes. LABORATORY WORK: Sodium 136, potassium 5.4, BUN 136, creatinine 6.4, in the past had been as high as 5.3. Her albumin was 3.8. Troponin was 0.14, this morning is 0.2. BNP 35,000. Previous cholesterol 282, triglyceride 126, HDL 100, LDL 155. Her white blood cell count 4.7, hemoglobin 12, hematocrit 37. IMPRESSION AND RECOMMENDATIONS: 1. History of encephalopathy. 2. Acute renal failure. 3. Chronic obstructive pulmonary disease. 4. Tobacco abuse. 5. History of seizures. 6. History of migraines. 7. History of hypertension. The patient has been on an ARB at this time. I would hold that. <ELECTRONICALLY SIGNED> By: Margarito Calvert MD, [facility] 05/08/21 1023 [id number] [id number] Nassar MD, FACC /nt
[2021-05-08 12:00] VITALS: BP 93/46
[2021-05-08 13:00] LABS: ABSOLUTE LYMPHOCYTES 0.1 thou/uL (0.8-5.3); ABSOLUTE MONOCYTES 0.1 thou/uL (0.0-1.2); ABSOLUTE NEUTROPHILS 0.7 thou/uL (1.6-8.1); BASOPHILS 0.5 %; EOSINOPHILS 0.2 %; HEMATOCRIT 28.6 % (37.0-47.0); HEMOGLOBIN 9.3 gm/dL (12.0-15.0); LYMPHOCYTES 8.6 %; MCH 25.8 pg (26.0-34.0); MCHC 32.6 g/dL (28.0-37.0); MCV 79.1 fL (80.0-100.0); MONOCYTES 7.9 %; MPV 6.4 fl. (7.2-11.1); NUCLEATED RBCS 1 /100WBC; PLATELET COUNT* 116 thou/uL (150-400); POLYS 82.8 %; RBC 3.61 mil/uL (4.20-5.00); RDW-CV 24.2 % (10.5-14.5)
[2021-05-08 13:03] LABS: WBC 0.9 thou/uL (4.0-11.0)
[2021-05-08 16:00] VITALS: BP 101/48
[2021-05-08 20:29] VITALS: BP 108/70
[2021-05-09] VITALS: BP 114/71
[2021-05-09 04:00] VITALS: BP 118/71
[2021-05-09 05:08] LABS: HEMATOCRIT 31.9 % (37.0-47.0); HEMOGLOBIN 10.3 gm/dL (12.0-15.0); MCH 25.8 pg (26.0-34.0); MCHC 32.2 g/dL (28.0-37.0); MCV 80.1 fL (80.0-100.0); MPV 6.7 fl. (7.2-11.1); RBC 3.98 mil/uL (4.20-5.00); RDW-CV 23.9 % (10.5-14.5)
[2021-05-09 05:13] LABS: POTASSIUM 3.6 mmol/L (3.5-5.1)
[2021-05-09 05:15] LABS: CREATININE 2.6 mg/dL (0.6-1.3)
[2021-05-09 05:17] LABS: WBC 1.5 thou/uL (4.0-11.0)
[2021-05-09 11:56] VITALS: BP 136/70
--- NOTE | 2021-05-12 21:48 | CON ---
[address] [address] CONSULTATION Name: ABISAI PEDRO Room: [address] IN M.R.#: [id number] Admission: 05/06/21 Attend Phys: Ken Julian MD Discharge: 05/09/21 Date of : 55 Report #: [id number] THIS REPORT FOR: cc: Omid Welch MD, Thomas MD Pervez, Adeel MD ~ DATE OF CONSULTATION: 05/07/2021 REQUESTING PHYSICIAN: Dr. Herrera. INDICATION FOR CONSULTATION: Respiratory distress/acute hypercarbic respiratory failure. HISTORY OF PRESENT ILLNESS: This is a 65-year-old female. She does have a history of COPD and has an extensive history of smoking. She is not on a CPAP or BiPAP at home long-term. I am also not aware of her being on oxygen at home. The patient has had acute renal failure in the past, but subsequently her creatinine had normalized. She does have significant pulmonary hypertension with a pulmonary artery systolic in the mid to high 60s on a previous echo. At this time, the patient was admitted yesterday. Presentation was with increasing weakness over the last 1 week. The patient had poor oral intake. She also had been somnolent and had an increase in shortness of breath. The patient is reported to have had a seizure as well. There is no known history of vomiting or aspirating. On admission, the patient was found to be in acute renal failure. Her creatinine was 6.4. She also was complaining of headache. The patient had an arterial blood gas performed last night, which shows a pH of 7.162. She had been on a BiPAP overnight. It was off briefly this morning as well. The patient had further deterioration in her respiratory status and also was more somnolent earlier today. She therefore had a reevaluation performed. Arterial blood gas now shows a pH of 7.063, this is a combined metabolic as well as respiratory acidosis. The patient has received one dose of Solu-Medrol. She has also been started on nebulized bronchodilators. The patient at this time says that she feels uncomfortable and does still have shortness of breath. She has vague pain complaints; however, there is no specific site. She says that she is uncomfortable with the urinary catheter. REVIEW OF SYSTEMS: Her review of systems for 12 points is negative except as mentioned above. PAST MEDICAL HISTORY: COPD, not known to be on oxygen, CPAP or BiPAP at home, pulmonary hypertension. Previous echo shows a left ventricular ejection fraction normal with a pulmonary artery systolic around 66, seizure disorder and encephalopathy. She has had acute renal failure [place] [address] CONSULTATION Name: ABISAI PEDRO Room: [address] IN M.R.#: [id number] Admission: 05/06/21 Attend Phys: Ken Julian MD Discharge: 05/09/21 Date of : 55 Report #: [id number] SOCIAL HISTORY: There is an extensive history of smoking. The patient says she has now discontinued. Per records, she is still smoking half pack a day. Regardless, she has smoked for several decades. No known history of heavy alcohol use or illegal drug use. CURRENT MEDICATIONS: List in [facility] reviewed. HOME MEDICATIONS: List in [facility] reviewed. FAMILY HISTORY: No pertinent family history. ALLERGIES: No known drug allergies. PHYSICAL EXAMINATION: GENERAL: She is fully alert and awake, was on BiPAP with 30% FiO2. I have switched this over from ST to AVAPS mode and increased the rate as well. VITAL SIGNS: She has a pulse of 88 and a blood pressure of 106/57. She is saturating 95%. She is not overbreathing the set BiPAP rate. She is afebrile with a temperature of 36.9. Body mass index is 18. HEENT: Normocephalic and atraumatic. Pupils are equal and reactive. There is no throat erythema. NECK: Does not show raised JVP asymmetry, mass or lymph nodes. CHEST: Symmetrical expansion on inspection and palpation. On auscultation, breath sounds are bilaterally equal, but significantly decreased. Expirations are prolonged. HEART: Regular. There is no murmur. ABDOMEN: Soft and nontender. EXTREMITIES: Lower extremities show some small varicose veins, but there is no calf tenderness. There is no edema. SKIN: Dry and intact. NEUROLOGIC: Moves all extremities bilaterally equally and spontaneously with no focal deficit identified. LABORATORY DATA: The patient's chest x-ray is reviewed and compared with her previous chest x-rays. There is significant hyperinflation consistent with COPD. There is no pulmonary vascular congestion. There is an infiltrate in the right middle lobe, which likely represents chronic changes. There is a small infiltrate at the left lung base. The patient's lab work in [facility] reviewed. See discussion regarding arterial blood gases as above. ASSESSMENT AND PLAN: 1. Acute on chronic hypercarbic respiratory failure. I adjusted the BiPAP settings, we will repeat an arterial blood gas at 4:00 p.m. [place] [address] CONSULTATION Name: ABISAI PEDRO Room: [address]#: [id number] Admission: 05/06/21 Attend Phys: Ken Julian MD Discharge: 05/09/21 Date of : 55 Report #: [id number] For now, keep the patient on BiPAP. If her arterial blood gases improve, then we will cut this back to while asleep and p.r.n. The patient likely will need either BiPAP or Trilogy while asleep lifelong. Continue to titrate oxygen. She is saturating adequately with 30% FiO2 at this time. 2. Chronic obstructive pulmonary disease exacerbation. I ordered more scheduled Solu-Medrol, increased DuoNeb to q.4 hours and added budesonide as well. 3. Acute renal failure with metabolic acidosis. I reviewed with Dr. Cummins, she recommended starting a bicarbonate infusion. I went ahead and ordered. There is no pulmonary vascular congestion on the chest x-ray; therefore, the patient is likely to in fact benefit from IV fluids from a pulmonary point of view. There is no obstruction noted on her renal ultrasound. 4. Pulmonary infiltrates. The infiltrate in the right middle lobe likely represents chronic change. There is a small opacity at the left lung base. While she is reported to have had a seizure, she is not reported to have any definite evidence of aspiration or vomiting. She is on Zosyn. For now, we have continued the same. My intent is to continue broad-spectrum antibiotic. However, if she improves, then I will be inclined to switch this over to ceftriaxone. There is no evidence of COVID-19 at this time. 5. Severe pulmonary hypertension. Recommend proceeding with venous Dopplers. We will also obtain a D-dimer. I would like to stabilize her first; however, if her D-dimer is elevated, then down the line, I will consider obtaining a perfusion scan of lungs. I do not have intent to do a CTA chest as she is very high risk for IV dye injury. 6. Deep venous thrombosis prophylaxis, on subcutaneous heparin. 7. Gastrointestinal prophylaxis, I will switch famotidine over to Pepcid while she is on high dose steroids. 8. Clostridium difficile prophylaxis, Lactinex. The patient is critically ill at this time. Total time spent providing critical care to this patient today exceeds 47 minutes. <ELECTRONICALLY SIGNED> By: Nitish Ang MD 05/12/21 2148 1402 [id number] j Ang MD /nt
== END 2021-05-09 16:05 | disposition left against medical advice (07) | DRG 871 ==
LOC: M.ERS 20:24 → M.TBA-ER 22:01 → M.2W 22:01
PROVIDERS: Internal Medicine; Internal Medicine Critical Care Medicine; Personal Emergency Response Attendant; ADMIT Internal Medicine; ATTEND Internal Medicine
PROC: 5A09357 Assistance with Respiratory Ventilation, Less than 24 Consecutive Hours, Continuous Positive Airway Pressure (ICD-10-PCS; principal; 2021-05-07)
PROC: 5A09357 Assistance with Respiratory Ventilation, Less than 24 Consecutive Hours, Continuous Positive Airway Pressure (ICD-10-PCS; 2021-05-08)
DX: A41.9 Sepsis, unspecified organism (principal); I21.A1 Myocardial infarction type 2; J96.21 Acute and chronic respiratory failure with hypoxia; J96.22 Acute and chronic respiratory failure with hypercapnia; R65.21 Severe sepsis with septic shock; N17.9 Acute kidney failure, unspecified; E87.4 Mixed disorder of acid-base balance; E87.2 Acidosis; Z68.1 Body mass index [BMI] 19.9 or less, adult; D61.818 Other pancytopenia; E44.1 Mild protein-calorie malnutrition; A04.72 Enterocolitis due to Clostridium difficile, not specified as recurrent; I95.9 Hypotension, unspecified; E86.0 Dehydration; E87.5 Hyperkalemia; J44.9 Chronic obstructive pulmonary disease, unspecified; N18.9 Chronic kidney disease, unspecified; D64.9 Anemia, unspecified; R77.8 Other specified abnormalities of plasma proteins; F17.210 Nicotine dependence, cigarettes, uncomplicated; G43.909 Migraine, unspecified, not intractable, without status migrainosus; I27.20 Pulmonary hypertension, unspecified; I12.9 Hypertensive chronic kidney disease with stage 1 through stage 4 chronic kidney disease, or unspecified chronic kidney disease; Z53.21 Procedure and treatment not carried out due to patient leaving prior to being seen by health care provider; Z20.822 Contact with and (suspected) exposure to COVID-19; Z79.82 Long term (current) use of aspirin; Z79.899 Other long term (current) drug therapy